=== PATIENT | male | born 1940 | race Caucasian/White ===

== ENCOUNTER 2020-10-22 18:26 | Inpatient (IN) | payer MEDICARE, OTHER ==
--- NOTE | 2020-10-22 19:13 | ED ---
General Adult HPI - General Chief complaint: Extremity Injury, Lower Stated complaint: fall Time Seen by Provider: 10/22/20 18:30 Source: EMS, RN notes reviewed, old records reviewed Mode of arrival: EMS Limitations: no limitations - History of Present Illness Initial comments: This is an 80-year-old male who presents emergency department from another ospital. Patient fell this morning after he tripped over something. Patient went to that facility and he was diagnosed with a right hip fracture. Patient denies hitting his head or neck. Patient denies any chest or back pain. Patient denies any upper quadrant pain. Patient denies any other injury. - Related Data Allergies Allergy/AdvReac Type Severity Reaction Status Date / Time No Known Allergies Allergy Verified 10/22/20 18:38 Review of Systems ROS Statement: Those systems with pertinent positive or pertinent negative responses have been documented in the HPI. ROS Other: All systems not noted in ROS Statement are negative. Past Medical History Past Medical History: Asthma, Heart Failure, COPD, Hypertension Additional Past Medical History / Comment(s): tachycardia History of Any Multi-Drug Resistant Organisms: None Reported Past Surgical History: No Surgical Hx Reported Past Psychological History: No Psychological Hx Reported Smoking Status: Vaper Past Alcohol Use History: None Reported Past Drug Use History: None Reported General Exam - General Exam Comments Initial Comments: GENERAL: Patient is well-developed and well-nourished. Patient is nontoxic and well- hydrated and is in mild distress. ENT: Neck is soft and supple. No significant lymphadenopathy is noted. Oropharynx is clear. Moist mucous membranes. Neck has full range of motion without eliciting any pain. EYES: The sclera were anicteric and conjunctiva were pink and moist. Extraocular movements were intact and pupils were equal round and reactive to light. Eyelids were unremarkable. PULMONARY: Unlabored respirations. Good breath sounds bilaterally. No audible rales rhonchi or wheezing was noted. CARDIOVASCULAR: There is a regular rate and rhythm without any murmurs gallops or rubs. ABDOMEN: Soft and nontender with normal bowel sounds. SKIN: Skin is clear with no lesions or rashes and otherwise unremarkable. NEUROLOGIC: Patient is alert and oriented x3. Cranial nerves II through XII are grossly intact. Motor and sensory are also intact. Normal speech, volume and content. Symmetrical smile. MUSCULOSKELETAL: Patient is having difficulty moving his right hip secondary to pain. Patient also has pain on palpation to the lateral and anterior aspect of the hip. LYMPHATICS: No significant lymphadenopathy is noted PSYCHIATRIC: Normal psychiatric evaluation. Limitations: no limitations Course Vital Signs 10/22/20 18:27 Temperature 99.5 F Pulse Rate 117 H Respiratory 20 Rate Blood Pressure 151/86 O2 Sat by Pulse 88 L Oximetry Medical Decision Making - Medical Decision Making I reviewed the patient's x-rays lab work and spoke with Kannan [facility] of [facility] he accepted the admission of the patient admitted the patient to Dr. Hodges and wrote admitting orders. Disposition Clinical Impression: Subcapital fracture of femur Disposition: ADMITTED IP TO THIS HOSP Referrals: Kt Wolf MD [Primary Care Provider] - 1-2 days Time of Disposition: 19:13
[2020-10-22] MEDS: SODIUM CHLORIDE 0.9% 1,000 ML IV ONE (20:03)
[2020-10-22 20:21] LABS: Basophils % (A) 0 %; Eosinophils # (A) 0.2 k/uL (0-0.7); Eosinophils % (A) 1 %; HCT 37.1 % (39.0-53.0); HGB 12.9 gm/dL (13.0-17.5); Lymphocytes # (A) 0.7 k/uL (1.0-4.8); Lymphocytes % (A) 5 %; MCH 28.6 pg (25.0-35.0); MCHC 34.8 g/dL (31.0-37.0); MCV 82.2 fL (80.0-100.0); Monocytes # (A) 0.7 k/uL (0-1.0); Monocytes % (A) 5 %; Neutrophils # (A) 10.7 k/uL (1.3-7.7); Neutrophils % (A) 86 %; Platelet Count 230 k/uL (150-450); RBC 4.51 m/uL (4.30-5.90); RDW 14.6 % (11.5-15.5); WBC 12.4 k/uL (3.8-10.6)
[2020-10-22 20:29] LABS: Prothrombin Time 10.8 sec (9.0-12.0)
[2020-10-22 20:35] LABS: ALT 22 U/L (4-49); AST 36 U/L (17-59); African American GFR (CKD) >90 (>60 ml/min/1.73 sqM); Albumin 3.6 g/dL (3.5-5.0); Alkaline Phosphatase 87 U/L (38-126); Anion Gap 8 mmol/L; Blood Urea Nitrogen 13 mg/dL (9-20); Calcium 8.9 mg/dL (8.4-10.2); Carbon Dioxide 34 mmol/L (22-30); Chloride 98 mmol/L (98-107); Glucose 125 mg/dL (74-99); Non-African American GFR(CKD) 85 (>60 ml/min/1.73 sqM); Sodium 140 mmol/L (137-145); Total Protein 6.1 g/dL (6.3-8.2)
[2020-10-22 20:42] LABS: Potassium 2.3 mmol/L (3.5-5.1)
[2020-10-22] MEDS ORDERED: POTASSIUM CHLORIDE ER 20 MEQ TAB.ER PO STA (20:43)
[2020-10-22] MEDS ORDERED: POTASSIUM CHLORIDE 40 MEQ in WATER FOR INJECTION 1 100ML.BAG IVPB STA (20:48)
[2020-10-22] MEDS: POTASSIUM CHLORIDE 20 MEQ in WATER FOR INJECTION 1 100ML.BAG IVPB SCH (21:23)
[2020-10-22] MEDS: HYDROmorphone 0.5 MG/0.5 ML SYRINGE IVP PRN (22:42)
[2020-10-23] MEDS: POTASSIUM CHLORIDE 20 MEQ in WATER FOR INJECTION 1 100ML.BAG IVPB SCH (00:24)
[2020-10-23] MEDS ORDERED: IPRATROPIUM-ALBUTEROL 3 ML NEB INHALATION PRN (02:49)
--- NOTE | 2020-10-23 02:49 | P.CONS ---
History of Present Illness - Reason for Consult Consult date: 10/22/20 pre op eval Requesting physician: Panfilo Hodges - Chief Complaint right hip pain - History of Present Illness 80 year old male with history of COPD not on home oxygen , BPA, hypertension , ? CHF patient claims to be at his baseline status of health, he works at an [employer], when today he tripped and fell , could not get up due to severe right hip pain, he denies any associated dizziness, palpitations or chest pain , no head injury or LOC. patient was taken to a different facility where they ran some blood work and imaging, and found that he has right hip fracture )right femoral subcapital fracture) . he was sent to our facility for further workup he currently laying comfortably in bed with pain well controlled, denies any other active medical issues blood work also showed mild anemia, patient denies GI bleeding ,but he never had any colonoscopies Review of Systems Pertinent positives as noted in HPI. All other systems were reviewed and are negative Past Medical History Past Medical History: Asthma, Heart Failure, COPD, Hypertension Additional Past Medical History / Comment(s): tachycardia History of Any Multi-Drug Resistant Organisms: None Reported Past Surgical History: No Surgical Hx Reported Past Anesthesia/Blood Transfusion Reactions: No Reported Reaction Past Psychological History: No Psychological Hx Reported Smoking Status: Former smoker, Vaper Past Alcohol Use History: None Reported Past Drug Use History: None Reported - Past Family History family Family Medical History: No Reported History Medications and Allergies Home Medications Medication Instructions Recorded Confirmed Type Budesonide [Pulmicort] 0.5 mg INHALATION RT-BID PRN 10/22/20 10/22/20 History Fluticasone Nasal [place] [Flonase 2 spr EA NOSTRIL DAILY PRN 10/22/20 10/22/20 History Nasal [place]] Furosemide [Lasix] 20 - 40 mg PO DAILY PRN 10/22/20 10/22/20 History Ipratropium-Albuterol Nebulize 3 ml INHALATION RT-QID PRN 10/22/20 10/22/20 History [Duoneb 0.5 mg-3 mg/3 ml Soln] Metoprolol Tartrate [Lopressor] 12.5 mg PO BID 10/22/20 10/22/20 History Potassium Chloride ER [K-Dur 10] 10 meq PO DAILY 10/22/20 10/22/20 History Tamsulosin [Flomax] 0.4 mg PO DAILY 10/22/20 10/22/20 History lisinopriL [Zestril] 10 mg PO DAILY 10/22/20 10/22/20 History Allergies Allergy/AdvReac Type Severity Reaction Status Date / Time No Known Allergies Allergy Verified 10/22/20 19:44 Physical Exam Vitals: Vital Signs Temp Pulse Pulse Resp BP BP Pulse Ox 10/23/20 01:05 98.9 F 105 H 17 158/86 92 L 10/22/20 22:01 98.9 F 108 H 16 160/92 94 L 10/22/20 22:00 105 H 17 10/22/20 21:18 110 H 16 169/97 95 10/22/20 20:00 112 H 16 156/81 87 L 10/22/20 18:27 99.5 F 117 H 20 151/86 88 L Intake and Output 10/22/20 10/22/20 10/23/20 14:59 22:59 06:59 Output Total 600 600 Balance -600 -600 Output: Urine 600 600 Other: Voiding Method Indwelling Catheter Weight 76.204 kg Constitutional: No acute distress, conversant, pleasant Eyes: Anicteric sclerae, moist conjunctiva, Pupils equal round reactive to light ENMT: NC/AT Oropharynx clear, no erythema, or exudates Neck: Supple, FROM, no masses, or JVD No carotid bruits No thyromegaly Lungs: Clear to auscultation Clear to percussion Normal respiratory effort, no accessory muscle use Cardiovascular: Heart regular in rate and rhythm, No murmurs, gallops, or rubs No peripheral edema Abdominal: Soft Nontender, no guarding, rebound or rigidity Abdomen moving with respiration Normoactive bowel sounds No hepatomegaly, No splenomegaly No palpable mass No abdominal wall hernia noted Skin: Normal temperature, tone, texture, turgor No induration No subcutaneous nodules No rash, lesions No ulcers Extremities: right lower extremity is externally rotated No digital cyanosis No clubbing Pedal pulses intact and symmetrical Radial pulses intact and symmetrical No calf tenderness Psychiatric: Alert and oriented to person, place and time Appropriate affect fair judgement Neuro Muscles Strength 5/5 in bilateral upper extremities, and left lower extremity , right lower extremity limited exam due to recent fracture and pain Sensation to light touch grossly present throughout Cranial nerves II-XII grossly intact No focal sensory deficits Lymphatics: no palpable cervical or supraclavicular , or inguinal lymph nodes Results CBC & Chem 7: 10/22/20 20:06 10/22/20 20:06 Labs: Abnormal Lab Results - Last 24 Hours (Table) 10/22/20 10/22/20 Range/Units 20:06 20:06 WBC 12.4 H (3.8-10.6) k/uL Hgb 12.9 L (13.0-17.5) gm/dL Hct 37.1 L (39.0-53.0) % Neutrophils # 10.7 H (1.3-7.7) k/uL Lymphocytes # 0.7 L (1.0-4.8) k/uL Potassium 2.3 L* (3.5-5.1) mmol/L Carbon Dioxide 34 H (22-30) mmol/L Glucose 125 H (74-99) mg/dL Total Protein 6.1 L (6.3-8.2) g/dL Assessment and Plan Assessment: Closed acute right femoral subcapital fracture 2/2 accidental fall management per orthopedic pain control and DVT PPX hypertension , controlled resume BP meds hypokalemia replace PO and IV follow up level check Mg EKG NSR no acute ST changes (copy of EKG reviewed that was done at [facility] ) mild anemia denies any GI bleeding consider OP follow up , and consider colonoscopy for cancer screening denies weight loss COPD compensated not on home O2 resume inhalers duonebs PRN encourage use of incentive spirometry post op BPA resume flomax patient is full code patient denies any history of CHF , although it is listed in his past medical history , currently he is not fluid overloaded or any signs of acute CHF exacerbation patient is 80 year old Male, presetned with right closed femoral fracture . Patient denies any recent history or symptoms of congestive heart failure, myocardial infarction, syncope, arrhythmia, palpitation, or exertional dyspnea. Patient denies any past medical history of stroke, CAD, CHF, CKD, or DM. Patient is functional at baseline at >4 METs he is able to climb one flight of stairs with no limitations, he is able to perform yard work with no limitations. Patient labs reviewed, EKG reviewed. Patient is scheduled for orthopedic surgery to fix right hip fracture. This is of moderate risk, however, patient has no medical risk factors from his past medical history. Patient can proceed to surgery with moderate but acceptable perioperative cardiovascular risk factors contingent his potassium level is corrected. This has been explained to the patient , all questions answered, patient verbalized understanding and agreement.
[2020-10-23] MEDS: SODIUM CHLORIDE 0.9% 1,000 ML IV ONE (05:15)
[2020-10-23] MEDS: POTASSIUM CHLORIDE 10 MEQ in WATER FOR INJECTION 1 100ML.BAG IVPB SCH ×4 (05:55→10:48)
[2020-10-23] MEDS: BUDESONIDE 0.5 MG/2 ML NEBU INHALATION PRN ×2 (07:27→19:52)
--- NOTE | 2020-10-23 08:02 | P.HPOR ---
History of Present Illness H&P Date: 10/23/20 Chief Complaint: Right hip fracture Patient is a 80-year-old male who was transferred to [facility] from a hospital [facility] after falling and injuring his right hip. Nose contacted by the emergency room staff yesterday regarding this, it was initially determined he had a right subcapital femur fracture. There was no orthopedic coverage at the hospital he was transferred from. Patient was evaluated at bedside today, Dr. Hodges was also available. Apparently the patient works at a [employer] in [place], [place]. He tripped and fell at work falling onto his right side. He denies hitting his head during the fall. He had severe pain involving the right lower extremity. He was unable to ambulate. He was taken to hospital in that area, x-rays were done which demonstrated the fracture of the right proximal femur. He describes mostly discomfort in his right lower extremity. He denies any bilateral upper extremity pain, left lower extremity pain, new onset cervical, thoracic or lumbar pain. He denies any headaches, lightheadedness, chest pain. Patient is requesting a nebulizer treatment for his shortness of breath which is baseline. Review of Systems Constitutional: Reports as per HPI Past Medical History Past Medical History: Asthma, Heart Failure, COPD, Hypertension Additional Past Medical History / Comment(s): tachycardia History of Any Multi-Drug Resistant Organisms: None Reported Past Surgical History: No Surgical Hx Reported Past Anesthesia/Blood Transfusion Reactions: No Reported Reaction Past Psychological History: No Psychological Hx Reported Smoking Status: Former smoker, Vaper Past Alcohol Use History: None Reported Past Drug Use History: None Reported - Past Family History family Family Medical History: No Reported History Medications and Allergies Home Medications Medication Instructions Recorded Confirmed Type Budesonide [Pulmicort] 0.5 mg INHALATION RT-BID PRN 10/22/20 10/22/20 History Fluticasone Nasal [place] [Flonase 2 spr EA NOSTRIL DAILY PRN 10/22/20 10/22/20 History Nasal [place]] Furosemide [Lasix] 20 - 40 mg PO DAILY PRN 10/22/20 10/22/20 History Ipratropium-Albuterol Nebulize 3 ml INHALATION RT-QID PRN 10/22/20 10/22/20 History [Duoneb 0.5 mg-3 mg/3 ml Soln] Metoprolol Tartrate [Lopressor] 12.5 mg PO BID 10/22/20 10/22/20 History Potassium Chloride ER [K-Dur 10] 10 meq PO DAILY 10/22/20 10/22/20 History Tamsulosin [Flomax] 0.4 mg PO DAILY 10/22/20 10/22/20 History lisinopriL [Zestril] 10 mg PO DAILY 10/22/20 10/22/20 History Allergies Allergy/AdvReac Type Severity Reaction Status Date / Time No Known Allergies Allergy Verified 10/22/20 19:44 Physical Examination Right lower extremity: No obvious open lesions or sores are present throughout the extremity, there is obvious shortening and external rotation of the leg compared to the contralateral side Patient has generalized tenderness palpation involving the proximal aspect of the right lower extremity. Logroll maneuver of the leg does reproduce discomfort, he is unable to straight leg raise at this time Plantar flexion, dorsiflexion, EHL, FHL are intact,strength deficits appreciated. Motion and strength are not assessed of the hip or knee at this time Calf is soft, no tenderness with palpation Sensory exam to light touch is intact throughout the extremity, dorsalis pedis pulses 2+ General orthopedic exam: No point tenderness is appreciated that the cervical, thoracic or lumbar spine No point tenderness appreciated in the bilateral upper extremities, his range of motion is intact in all major muscle groups. Sensory exam to light touch throughout the bilateral upper extremities intact, his radial and ulnar pulses are 2+ No point tenderness appreciated throughout the left lower extremity, logroll maneuver reproduces no pain. Range of motion is intact in all major muscle groups. Sensory exam to light touch is intact throughout the left lower extremity, calf is soft, no tenderness with palpation. Dorsalis pedis pulses 2+ Results - Labs Labs: Abnormal Lab Results - Last 24 Hours (Table) 10/22/20 10/22/20 10/23/20 Range/Units 20:06 20:06 03:52 WBC 12.4 H (3.8-10.6) k/uL Hgb 12.9 L (13.0-17.5) gm/dL Hct 37.1 L (39.0-53.0) % Neutrophils # 10.7 H (1.3-7.7) k/uL Lymphocytes # 0.7 L (1.0-4.8) k/uL Potassium 2.3 L* 3.0 L (3.5-5.1) mmol/L Carbon Dioxide 34 H (22-30) mmol/L Glucose 125 H (74-99) mg/dL Total Protein 6.1 L (6.3-8.2) g/dL H & H 10/22/20 Range/Units 20:06 Hgb 12.9 L (13.0-17.5) gm/dL Hct 37.1 L (39.0-53.0) % Coagulation 10/22/20 Range/Units 20:06 INR 1.0 (<1.2) Result Diagrams: 10/22/20 20:06 10/23/20 03:52 - Diagnostic results Hip x-ray: report reviewed, image reviewed Assessment and Plan Assessment: Right hip pain Displaced right subcapital femur fracture Status post fall from standing Hypokalemia Other medical comorbidities Plan: Dr. Hodges and myself were both at bedside today to explain the treatment options with the patient. We would like to proceed with a right hip hemiarthroplasty on 10/23/2020. Patient was made nothing by mouth after midnight last night Risk and benefits of the procedure were discussed patient today at bedside, he is in good understanding and would like to proceed, obtain consent prior to procedure Surgery will be tenably scheduled for later this afternoon, pending his potassiu m levels are corrected. If this is not achievable, we will plan for surgery on 10/24/2020 Pain control, continue with current medication. Plan for use of low-dose oral medication after surgery GI and DVT prophylaxis, will begin subcu medication after surgery Medical recommendations PT/OT evaluation of surgery Maintain urinary catheter at this time Further recommendations to follow Time with Patient: Less than 30
[2020-10-23] MEDS: METOPROLOL TARTRATE 12.5 MG TAB PO SCH ×2 (08:41→22:03)
[2020-10-23] MEDS: TAMSULOSIN 0.4 MG CAP.ER.24H PO SCH (08:41)
[2020-10-23] MEDS ORDERED: FLUTICASONE 50MCG/SPRAY NASAL 16GM EA NOSTRIL PRN (09:00)
[2020-10-23 09:58] LABS: African American GFR (CKD) >90 (>60 ml/min/1.73 sqM); Anion Gap 7 mmol/L; Blood Urea Nitrogen 11 mg/dL (9-20); Carbon Dioxide 34 mmol/L (22-30); Chloride 101 mmol/L (98-107); Glucose 118 mg/dL (74-99); Non-African American GFR(CKD) 87 (>60 ml/min/1.73 sqM); Potassium 2.9 mmol/L (3.5-5.1); Sodium 142 mmol/L (137-145)
[2020-10-23] MEDS ORDERED: POTASSIUM CHLORIDE ER 20 MEQ TAB.ER PO STA (10:35)
[2020-10-23] MEDS ORDERED: POTASSIUM CHLORIDE 10 MEQ in WATER FOR INJECTION 1 100ML.BAG IVPB SCH (11:00)
[2020-10-23] MEDS: IPRATROPIUM-ALBUTEROL 3 ML NEB INHALATION SCH ×3 (12:17→19:52)
--- NOTE | 2020-10-23 12:18 | P.PN ---
<Gurpreet Santiago - Last Filed: 10/23/20 12:18> Subjective Progress Note Date: 10/23/20 Hospital course: Patient is a very pleasant 80-year-old male with a past medical history of COPD not home oxygen dependent, hypertension, and BPH. Patient reports that he works at an [employer] and was retiring on November 07, however while at work yesterday he tripped and fell resulting in instant pain to his right hip. Patient was found to have a right femoral subcapital fracture and admitted under orthopedic surgery team with Dr. Hodges. We have been consulted for continued medical management throughout patient's hospitalization. In addition to right femoral subcapital fracture patient also found to have significant hypokalemia upon admission with potassium of 2.3 requiring replacement. Labs otherwise indicated mild leukocytosis with WBC count of 12.4, mild normocytic n ormochromic anemia with hemoglobin of 12.9, and hypercarbia with carbon dioxide of 34. Covid PCR was negative. Physical exam: Patient seen and fully evaluated at the bedside this morning. Patient reports pain to his right hip but denies any other complaints at this time including headache, lightheadedness, dizziness, chest pain, palpitations, shortness of breath, abdominal pain, nausea, vomiting, or experiencing any numbness or tingling in his extremities. Patient with positive shortening and right lateral rotation of right lower extremity. Posterior tibial pulse palpated. Patient scheduled for surgical repair of right femur later this afternoon. Potassium remains low status post replacement with repeat labs showing potassium up to 2.9 from previous 2.3. Additional orders placed along with stat redraw at 2 PM to ensure correction of electrolytes prior to surgical procedure. Vital signs reviewed and stable. General: Nontoxic, no distress and appears stated age. Derm: Skin warm and dry, normal coloration for ethnicity. Head: Atraumatic, normocephalic and symmetric. Eyes: EOMs intact, no lid lag, and anicteric sclera Mouth: no lip lesions, mucus membranes moist Cardiovascular: regular rate and rhythm with normal S1S2, no murmur, positive posterior tibial pulses bilaterally, and cap refill < 2 seconds. Lungs: Respirations even, regular, and unlabored on room air. Lungs with diffuse soft expiratory wheezes bilaterally. No rales, rhonchi, or crackles and no accessory muscle usage. Abdominal: soft, nontender to palpation, no guarding, no appreciable organomegaly. Rodriguez catheter in place. Ext: Patient with positive shortening and right lateral rotation of right lower extremity. Posterior tibial pulse palpated Neuro: Speech clear, face symmetrical and CN II-XII grossly intact with no noted focal neuro deficits Psych: Alert and oriented to person, place, time, and situation. Appropriate and pleasant affect. Assessment and Plan of Care: Closed acute right femoral subcapital fracture secondary to mechanical fall -Pain management, DVT prophylaxis, weightbearing, and PT/OT per primary admitting orthopedic surgery team. Hypokalemia -Potassium 2.9 status post replacement. Orders placed for additional potassium to be administered with stat repeat labs at 2 PM to ensure correction of potassium prior to patient undergoing surgical repair of right femur this afternoon. -We will continue to monitor closely with repeat labs and replace abnormal electrolyte values as needed. Mild anemia -Mild normocytic normochromic anemia with hemoglobin of 12.9. -No signs of active bleeding at this time, we will continue to monitor closely with repeat a.m. labs. COPD -Provide oxygenation as needed to maintain SpO2 equal to or greater than 90%. -Continue Pulmicort and as needed nebulizer treatments. -Encourage use of incentive spirometry 10-15 times hourly while awake. BPH -Continue daily home regimen with Flomax Thank you for allowing us to participate in the care of this pleasant patient. Do not hesitate to contact us with questions. Someone can be reached from the [facility] hospitalist group all hours of the day at [phone] or via [employer]. Objective - Vital Signs Vital signs: Vital Signs Temp 98.4 F 10/23/20 07:14 Pulse 100 10/23/20 07:41 Resp 18 10/23/20 07:41 BP 174/87 10/23/20 07:14 Pulse Ox 99 10/23/20 07:31 Intake & Output 10/22/20 10/23/20 10/23/20 18:59 06:59 18:59 Output Total 1700 Balance -1700 Weight 76.204 kg 76.204 kg Output: Urine 1700 Other: Voiding Method Indwelling Catheter Indwelling Catheter - Labs CBC & Chem 7: 10/22/20 20:06 10/23/20 09:03 Labs: Abnormal Lab Results - Last 24 Hours (Table) 09/10/22/20 10/23/20 Range/Units 20:06 20:06 03:52 WBC 12.4 H (3.8-10.6) k/uL Hgb 12.9 L (13.0-17.5) gm/dL Hct 37.1 L (39.0-53.0) % Neutrophils # 10.7 H (1.3-7.7) k/uL Lymphocytes # 0.7 L (1.0-4.8) k/uL Potassium 2.3 L* 3.0 L (3.5-5.1) mmol/L Carbon Dioxide 34 H (22-30) mmol/L Glucose 125 H (74-99) mg/dL Total Protein 6.1 L (6.3-8.2) g/dL 10/23/20 Range/Units 09:03 WBC (3.8-10.6) k/uL Hgb (13.0-17.5) gm/dL Hct (39.0-53.0) % Neutrophils # (1.3-7.7) k/uL Lymphocytes # (1.0-4.8) k/uL Potassium 2.9 L (3.5-5.1) mmol/L Carbon Dioxide 34 H (22-30) mmol/L Glucose 118 H (74-99) mg/dL Total Protein (6.3-8.2) g/dL <Mana Ryder - Last Filed: 10/23/20 15:36> Objective - Vital Signs Vital signs: Vital Signs Temp 99.4 F 10/23/20 15:33 Pulse 80 10/23/20 15:33 Resp 16 10/23/20 15:33 BP 152/85 10/23/20 15:33 Pulse Ox 96 10/23/20 15:33 Intake & Output 10/22/20 10/23/20 10/23/20 18:59 06:59 18:59 Output Total 1700 1800 Balance -1700 -1800 Weight 76.204 kg 76.204 kg Output: Urine 1700 1800 Uretheral (Rodriguez) 1800 Other: Voiding Method Indwelling Catheter Indwelling Catheter - Labs CBC & Chem 7: 10/22/20 20:06 10/23/20 15:07 Labs: Abnormal Lab Results - Last 24 Hours (Table) 10/22/20 10/22/2010/23/21 Range/Units 20:06 20:06 03:52 WBC 12.4 H (3.8-10.6) k/uL Hgb 12.9 L (13.0-17.5) gm/dL Hct 37.1 L (39.0-53.0) % Neutrophils # 10.7 H (1.3-7.7) k/uL Lymphocytes # 0.7 L (1.0-4.8) k/uL Potassium 2.3 L* 3.0 L (3.5-5.1) mmol/L Carbon Dioxide 34 H (22-30) mmol/L Glucose 125 H (74-99) mg/dL Total Protein 6.1 L (6.3-8.2) g/dL 10/23/20 Range/Units 09:03 WBC (3.8-10.6) k/uL Hgb (13.0-17.5) gm/dL Hct (39.0-53.0) % Neutrophils # (1.3-7.7) k/uL Lymphocytes # (1.0-4.8) k/uL Potassium 2.9 L (3.5-5.1) mmol/L Carbon Dioxide 34 H (22-30) mmol/L Glucose 118 H (74-99) mg/dL Total Protein (6.3-8.2) g/dL Assessment and Plan Assessment: I reviewed the documentation as provided by the ARMIN above, who is the original author of this note. I agree with the documented assessment and plan, with the following changes: None
--- NOTE | 2020-10-23 17:09 | P.PN ---
Progress Note - Text Progress Note Date: 10/23/20 Patient's surgery was canceled for today due to or availability. Patient and were both notified at bedside. Patient will be made nothing by mouth after midnight. Plan is for surgery on 10/24/2020
[2020-10-24 06:34] LABS: African American GFR (CKD) >90 (>60 ml/min/1.73 sqM); Anion Gap 7 mmol/L; Blood Urea Nitrogen 12 mg/dL (9-20); Calcium 8.8 mg/dL (8.4-10.2); Carbon Dioxide 28 mmol/L (22-30); Chloride 104 mmol/L (98-107); Glucose 104 mg/dL (74-99); Non-African American GFR(CKD) 87 (>60 ml/min/1.73 sqM); Potassium 3.1 mmol/L (3.5-5.1); Sodium 139 mmol/L (137-145)
[2020-10-24] MEDS: HYDROmorphone 0.5 MG/0.5 ML SYRINGE IVP PRN (07:21)
[2020-10-24] MEDS ORDERED: POTASSIUM CHLORIDE ER 20 MEQ TAB.ER PO STA (07:36)
[2020-10-24] MEDS: METOPROLOL TARTRATE 12.5 MG TAB PO SCH ×2 (08:51→21:51)
[2020-10-24] MEDS: TAMSULOSIN 0.4 MG CAP.ER.24H PO SCH (08:52)
--- NOTE | 2020-10-24 08:52 | P.PN ---
<Gurpreet Santiago - Last Filed: 10/24/20 15:03> Subjective Progress Note Date: 10/24/20 Hospital course: Patient is a very pleasant 80-year-old male with a past medical history of COPD not home oxygen dependent, hypertension, and BPH. Patient reports that he works at an [employer] and was retiring on November 07, however while at work he tripped and fell resulting in instant pain to his right hip. Patient was found to have a right femoral subcapital fracture and admitted to the hospital on 10/22/20 under orthopedic surgery team with Dr. Hodges. We were consulted for continued medical management throughout patient's hospitalization. In addition to right femoral subcapital fracture patient was also found to have significant hypokalemia upon admission with potassium of 2.3 requiring replacement. Labs otherwise indicated mild leukocytosis with WBC count of 12.4, mild normocytic normochromic anemia with hemoglobin of 12.9, and hypercarbia with carbon dioxide of 34. Covid PCR was negative. Physical exam: Patient seen and fully evaluated at the bedside this morning. Patient reports pain to his right hip is currently "manageable". He is scheduled for surgery with Dr. Hodges today at 12:30. Patient denies having any headache, lightheadedness, dizziness, chest pain, palpitations, shortness of breath, abdominal pain, nausea, vomiting, or experiencing any numbness/tingling/weakness in his extremities. Potassium remains low despite replacement yesterday and was 3.1 this morning. Additional orders placed for replacement. Vital signs reviewed and stable. General: Nontoxic, no distress and appears stated age. Derm: Skin warm and dry, normal coloration for ethnicity. Head: Atraumatic, normocephalic and symmetric. Eyes: EOMs intact, no lid lag, and anicteric sclera Mouth: no lip lesions, mucus membranes moist Cardiovascular: regular rate and rhythm with normal S1S2, no murmur, positive posterior tibial pulses bilaterally, and cap refill < 2 seconds. Lungs: Respirations even, regular, and unlabored on room air. Lungs with diffuse soft expiratory wheezes bilaterally. No rales, rhonchi, or crackles and no accessory muscle usage. Abdominal: soft, nontender to palpation, no guarding, no appreciable organomegaly. Rodriguez catheter in place. Ext: Patient with positive shortening and right lateral rotation of right lower extremity. Posterior tibial pulse palpated Neuro: Speech clear, face symmetrical and CN II-XII grossly intact with no noted focal neuro deficits Psych: Alert and oriented to person, place, time, and situation. Appropriate and pleasant affect. Assessment and Plan of Care: Closed acute right femoral subcapital fracture secondary to mechanical fall -Pain management, DVT prophylaxis, weightbearing, and PT/OT per primary admitting orthopedic surgery team. -Scheduled to go down for surgical repair today at 12:[address] Hodges. Hypokalemia -Potassium 3.1 this morning, replaced. -We will continue to monitor closely with repeat labs and replace abnormal electrolyte values as needed. Mild anemia -Mild normocytic normochromic anemia with hemoglobin of 11.1. -No signs of active bleeding at this time, we will continue to monitor closely with repeat a.m. labs. COPD -Provide oxygenation as needed to maintain SpO2 equal to or greater than 90%. -Continue Pulmicort and as needed nebulizer treatments. -Encourage use of incentive spirometry 10-15 times hourly while awake. BPH -Continue daily home regimen with Flomax Thank you for allowing us to participate in the care of this pleasant patient. Do not hesitate to contact us with questions. Someone can be reached from the [facility] [place] hospitalist group all hours of the day at [phone] or via [employer]. Objective - Vital Signs Vital signs: Vital Signs Temp 99.2 F 10/24/20 07:14 Pulse 76 10/24/20 07:14 Resp 16 10/24/20 07:14 BP 148/80 10/24/20 07:14 Pulse Ox 95 10/24/20 00:45 Intake & Output 10/23/20 10/24/20 10/24/20 18:59 06:59 18:59 Output Total 1800 750 Balance -1800 -750 Output: Urine 1800 750 Uretheral (Rodriguez) 1800 Other: Voiding Method Indwelling Catheter Indwelling Catheter # Bowel Movements 0 - Labs CBC & Chem 7: 10/24/20 05:37 10/24/20 12:29 Labs: Abnormal Lab Results - Last 24 Hours (Table) 10/23/20 10/24/20 Range/Units 09:03 05:37 Potassium 2.9 L 3.1 L (3.5-5.1) mmol/L Carbon Dioxide 34 H (22-30) mmol/L Glucose 118 H 104 H (74-99) mg/dL <Mana Ryder - Last Filed: 10/24/20 17:51> Objective - Vital Signs Vital signs: Vital Signs Temp 97.8 F 10/24/20 15:40 Pulse 82 10/24/20 16:25 Resp 16 10/24/20 16:25 BP 144/72 10/24/20 16:25 Pulse Ox 97 10/24/20 16:25 Intake & Output 10/23/20 10/24/20 10/24/20 18:59 06:59 18:59 Intake Total 1151 Output Total 1800 750 250 Balance -1800 -750 901 Weight 76.2 kg Intake: IV 1151 Output: Urine 1800 750 150 Uretheral (Rodriguez) 1800 Estimated Blood Loss 100 Other: Voiding Method Indwelling Catheter Indwelling Catheter Indwelling Catheter # Bowel Movements 0 - Labs CBC & Chem 7: 10/24/20 05:37 10/24/20 12:29 Labs: Abnormal Lab Results - Last 24 Hours (Table) 10/24/20 10/24/20 Range/Units 05:37 05:37 WBC 10.24 H (4.50-10.00) X 10*3/uL RBC 3.95 L (4.40-5.60) X 10*6/uL Hgb 11.1 L (13.0-17.0) g/dL Hct 34.2 L (39.6-50.0) % RDW 15.3 H (11.5-14.5) % Potassium 3.1 L (3.5-5.1) mmol/L Glucose 104 H (74-99) mg/dL Assessment and Plan Assessment: I reviewed the documentation as provided by the ARMIN above, who is the original author of this note. I agree with the documented assessment and plan, with the following changes: None
[2020-10-24] MEDS ORDERED: lisinopriL 10 MG TAB PO SCH (09:00)
[2020-10-24] MEDS: BUDESONIDE 0.5 MG/2 ML NEBU INHALATION PRN (09:21)
[2020-10-24] MEDS: IPRATROPIUM-ALBUTEROL 3 ML NEB INHALATION SCH ×4 (09:22→19:35)
[2020-10-24 09:24] LABS: HCT 34.2 % (39.6-50.0); HGB 11.1 g/dL (13.0-17.0); MCH 28.1 pg (27.0-32.0); MCHC 32.5 g/dL (32.0-37.0); MCV 86.6 fL (80.0-97.0); Mean Platelet Volume 10.1 fL (9.5-12.2); Platelet Count 157 X 10*3/uL (140-440); RBC 3.95 X 10*6/uL (4.40-5.60); RDW 15.3 % (11.5-14.5); WBC 10.24 X 10*3/uL (4.50-10.00)
[2020-10-24] MEDS ORDERED: IV FLUID CONTINUATION 1,000 ML IV ONE (12:19)
--- NOTE | 2020-10-24 12:43 | P.PN ---
Progress Note - Text Progress Note Date: 10/24/20 Patient seen and examined this morning is doing fairly well he still having pain in his right hip. We discussed surgery today and he is on board discussed risks and benefits again including risk of bleeding infection and strengthening tissues reoperation of anesthesia including is willing to assume these risks and all risks of surgery. We confirmed his consent again he has been nothing by mouth since midnight. Patient is ready and willing to proceed with procedure as exam remained stable at this time and we will plan on one p.m. for surgery.
[2020-10-24] MEDS ORDERED: ONDANSETRON 4 MG/2 ML VIAL IVP ONE (12:59)
[2020-10-24] MEDS ORDERED: DEXAMETHASONE SOD PHOSPHATE 4 MG/ML 1 ML VIAL IVP ONE (13:00)
[2020-10-24] MEDS ORDERED: ONDANSETRON 4 MG/2 ML VIAL ONE (13:01)
[2020-10-24] MEDS ORDERED: SODIUM CHLORIDE 0.9% 100 ML BAG ONE (13:27)
[2020-10-24] MEDS ORDERED: fentaNYL (PF) 50 MCG/ML 2 ML AMP ONE (13:27)
[2020-10-24] MEDS ORDERED: PHENYLEPHRINE-0.9% NACL SYG 1,000 MCG/10 ML SYRINGE ONE (13:27)
[2020-10-24] MEDS ORDERED: MIDAZOLAM 2 MG/2 ML VIAL ONE (13:27)
[2020-10-24] MEDS ORDERED: KETAMINE 10 MG/ML 20 ML VIAL ONE (13:27)
[2020-10-24] MEDS ORDERED: PROPOFOL 10 MG/ML 20 ML VIAL IV ONE (13:27)
[2020-10-24] MEDS ORDERED: TRANEXAMIC ACID 1,000 MG/10 ML VIAL ONE (13:27)
[2020-10-24] MEDS ORDERED: ceFAZolin 3,000 MG in SODIUM CHLORIDE 0.9% IRRIGATIO 3,000 ML IRRIGATION ONE (14:08)
[2020-10-24] MEDS ORDERED: TRANEXAMIC ACID 1,000 MG in SODIUM CHLORIDE 0.9% 100 ML IVPB ONE ×2 (14:29→14:30)
[2020-10-24] MEDS ORDERED: LACTATED RINGERS 1,000 ML IV ONE (15:35)
[2020-10-24] MEDS ORDERED: MAGNESIUM HYDROXIDE 2,400 MG/10 ML CUP PO PRN (15:48)
[2020-10-24] MEDS ORDERED: traMADol 50 MG TAB PO PRN (15:48)
[2020-10-24] MEDS ORDERED: ACETAMINOPHEN TAB 325 MG TAB PO PRN (15:48)
[2020-10-24] MEDS ORDERED: NALOXONE 0.4 MG/ML 1 ML VIAL IV PRN (15:48)
[2020-10-24] MEDS ORDERED: HYDROcodone/APAP 5-325MG 1 EACH TAB PO PRN (15:48)
--- NOTE | 2020-10-24 16:00 | P.PN ---
Progress Note - Text Progress Note Date: 10/24/20 Brief Post Op: Surgeon: Tracie Pre op dx; right femoral neck fracture Post op dx: Same Procedure: Right hip hemiarthroplasty Implants: [employer] stem size size 7 collared standard neck 52 bipolar head with a 28 inner Anesthesia: Spinal with sedation EBL: 1 50 mL Fluids: 1200 mL UO: 75 mL Dispo: Stable to PACU Post op Plan: Post operative AP pelvis as well as AP and lateral of the right hip Encourage ambulation IS 10x/hr Teds/SCDs Pain control Abduction pillow when laying in bed PT OT daily
--- NOTE | 2020-10-24 18:45 | XR ---
EXAMINATION TYPE: XR Hip Complete RT DATE OF EXAM: 10/24/2020 COMPARISON: 10/22/2020 HISTORY: Hip fracture TECHNIQUE: 2 views FINDINGS: There is right hip prosthesis. Components appear in good position. Acetabulum is intact. IMPRESSION: No complicating process seen.
[2020-10-24] MEDS: HYDROcodone/APAP 5-325MG 1 EACH TAB PO PRN (21:50)
[2020-10-24] MEDS: SENNOSIDES-DOCUSATE SODIUM 1 EACH TAB PO SCH (21:50)
[2020-10-25] MEDS: BUDESONIDE 0.5 MG/2 ML NEBU INHALATION PRN (07:25)
[2020-10-25] MEDS: IPRATROPIUM-ALBUTEROL 3 ML NEB INHALATION SCH ×4 (07:25→20:08)
[2020-10-25 08:09] LABS: Basophils % (A) 0 %; Eosinophils % (A) 0 %; HCT 29.9 % (39.0-53.0); Lymphocytes # (A) 0.9 k/uL (1.0-4.8); Lymphocytes % (A) 8 %; MCH 28.3 pg (25.0-35.0); MCHC 33.3 g/dL (31.0-37.0); MCV 84.9 fL (80.0-100.0); Mean Platelet Volume 7.6; Monocytes # (A) 0.6 k/uL (0-1.0); Monocytes % (A) 6 %; Neutrophils # (A) 8.5 k/uL (1.3-7.7); Neutrophils % (A) 83 %; Platelet Count 190 k/uL (150-450); RBC 3.52 m/uL (4.30-5.90); RDW 14.3 % (11.5-15.5); WBC 10.2 k/uL (3.8-10.6)
[2020-10-25] MEDS: TAMSULOSIN 0.4 MG CAP.ER.24H PO SCH (08:22)
[2020-10-25] MEDS: lisinopriL 10 MG TAB PO SCH (08:22)
[2020-10-25] MEDS: METOPROLOL TARTRATE 12.5 MG TAB PO SCH ×2 (08:22→21:28)
--- NOTE | 2020-10-25 09:14 | P.PN ---
<Gurpreet Santiago - Last Filed: 10/25/20 14:31> Subjective Progress Note Date: 10/25/20 Hospital course: Patient is a very pleasant 80-year-old male with a past medical history of COPD not home oxygen dependent, hypertension, and BPH. Patient reports that he works at an [employer] and was retiring on November 07, however while at work he tripped and fell resulting in instant pain to his right hip. Patient was found to have a right femoral subcapital fracture and admitted to the hospital on 10/22/20 under orthopedic surgery team with Dr. Hodges. We were consulted for continued medical management throughout patient's hospitalization. In addition to right femoral subcapital fracture patient was also found to have significant hypokalemia upon admission with potassium of 2.3 requiring replacement. Labs otherwise indicated mild leukocytosis with WBC count of 12.4, mild normocytic normochromic anemia with hemoglobin of 12.9, and hypercarbia with carbon dioxide of 34. Covid PCR was negative. Patient underwent right hip hemiarthroplasty on 10/24/20. Physical exam: Patient seen and fully evaluated at the bedside this morning. Patient is postoperative day one this morning. He is doing well. Patient has been ambulatory with assistance to the restroom. He denies having any complaints or concerns at this time. He reports his pain is managed well. He denies having any headache, lightheadedness, dizziness, chest pain, palpitations, shortness of breath, or experiencing any numbness/tingling/weakness. Patient did have slight drop in hemoglobin from 11.1 down to 10.0 otherwise labs unremarkable. Hypokalemia has resolved. Vital signs reviewed and stable. General: Nontoxic, no distress and appears stated age. Derm: Skin warm and dry, normal coloration for ethnicity. Head: Atraumatic, normocephalic and symmetric. Eyes: EOMs intact, no lid lag, and anicteric sclera Mouth: no lip lesions, mucus membranes moist Cardiovascular: regular rate and rhythm with normal S1S2, no murmur, positive posterior tibial pulses bilaterally, and cap refill < 2 seconds. Lungs: Respirations even, regular, and unlabored on room air. Lungs with diffuse soft expiratory wheezes bilaterally. No rales, rhonchi, or crackles and no accessory muscle usage. Abdominal: soft, nontender to palpation, no guarding, no appreciable organomegaly. Rodriguez catheter in place. Ext: Patient with positive shortening and right lateral rotation of right lower extremity. Posterior tibial pulse palpated Neuro: Speech clear, face symmetrical and CN II-XII grossly intact with no noted focal neuro deficits Psych: Alert and oriented to person, place, time, and situation. Appropriate and pleasant affect. Assessment and Plan of Care: Status post right hemiarthroplasty due to closed acute right femoral subcapital fracture resulting from mechanical fall -Pain management, DVT prophylaxis, weightbearing, and PT/OT per primary admitting orthopedic surgery team. -Underwent surgical repair on 10/24/20 Hypokalemia, resolved -We will continue to monitor closely with repeat labs and replace abnormal electrolyte values as needed. Mild anemia -Mild normocytic normochromic anemia with hemoglobin of 10.0. Baseline of 12.9. -No signs of active bleeding at this time, we will continue to monitor closely with repeat a.m. labs. COPD -Provide oxygenation as needed to maintain SpO2 equal to or greater than 90%. Patient remains on room air. -Continue Pulmicort and as needed nebulizer treatments. -Encourage use of incentive spirometry 10-15 times hourly while awake. BPH -Continue daily home regimen with Flomax Thank you for allowing us to participate in the care of this pleasant patient. Do not hesitate to contact us with questions. Someone can be reached from the [facility] hospitalist group all hours of the day at [phone] or via [employer]. Objective - Vital Signs Vital signs: Vital Signs Temp 99 F 10/25/20 07:17 Pulse 88 10/25/20 07:41 Resp 17 10/25/20 07:17 BP 126/74 10/25/20 07:17 Pulse Ox 98 10/25/20 07:17 Intake & Output 10/24/20 10/25/20 10/25/20 18:59 06:59 18:59 Intake Total 1151 Output Total 400 950 Balance 751 -950 Weight 76.2 kg 76 kg Intake: IV 1151 Output: Urine 300 950 Estimated Blood Loss 100 Other: Voiding Method Indwelling Catheter Indwelling Catheter - Labs CBC & Chem 7: 10/25/20 07:06 10/25/20 07:06 Labs: Abnormal Lab Results - Last 24 Hours (Table) 10/24/20 10/25/20 Range/Units 05:37 07:06 WBC 10.24 H (4.50-10.00) X 10*3/uL RBC 3.95 L 3.52 L (4.40-5.60) X 10*6/uL Hgb 11.1 L 10.0 L D (13.0-17.0) g/dL Hct 34.2 L 29.9 L (39.6-50.0) % RDW 15.3 H (11.5-14.5) % Neutrophils # 8.5 H (1.3-7.7) k/uL Lymphocytes # 0.9 L (1.0-4.8) k/uL <Coleen Monroy A - Last Filed: 10/25/20 19:45> Subjective Gurpreet Santiago NP rendered care for this patient independently, reviewed the findings and plan as documented in the note above. I did not physically speak with or examine the patient on this date. Objective - Vital Signs Vital signs: Vital Signs Temp 99.6 F 10/25/20 15:10 Pulse 88 10/25/20 15:35 Resp 18 10/25/20 15:10 BP 129/61 10/25/20 15:10 Pulse Ox 92 L 10/25/20 15:10 Intake & Output 10/25/20 10/25/20 10/26/20 06:59 18:59 06:59 Intake Total 100 Output Total 950 Balance -950 100 Weight 76 kg Intake: Intake, IV Titration 100 Amount ceFAZolin 2 gm In Sodium 100 Chloride 0.9% 50 ml @ 100 mls/hr IVPB Q8H [facility] Rx#: [id number] Output: Urine 950 Other: Voiding Method Indwelling Catheter Indwelling Catheter - Labs CBC & Chem 7: 10/25/20 07:06 10/25/20 07:06 Labs: Abnormal Lab Results - Last 24 Hours (Table) 10/25/20 10/25/20 Range/Units 07:06 07:06 RBC 3.52 L (4.30-5.90) m/uL Hgb 10.0 L D (13.0-17.5) gm/dL Hct 29.9 L (39.0-53.0) % Neutrophils # 8.5 H (1.3-7.7) k/uL Lymphocytes # 0.9 L (1.0-4.8) k/uL Glucose 112 H (70-110) mg/dL Calcium 8.5 L (8.7-10.3) mg/dL
--- NOTE | 2020-10-25 11:47 | P.PN ---
Subjective Progress Note Date: 10/25/20 Principal diagnosis: Status post right hip hemiarthroplasty Patient is evaluated today at bedside, he is resting in his hospital bed. He was able to ambulate with physical therapy early this morning, he did rather well. He is utilizing the abductor pillow while in bed. He is very eager to go home. His pain is currently managed she states. He denies any headaches, lightheadedness, chest pain or shortness of breath. Initial postoperative bandage was changed yesterday evening by myself, was contacted by the nursing staff due to excessive oozing from that area. This rem ained stable at this time. Objective - Vital Signs Vital signs: Vital Signs Temp 99 F 10/25/20 07:17 Pulse 88 10/25/20 11:30 Resp 17 10/25/20 07:17 BP 126/74 10/25/20 07:17 Pulse Ox 98 10/25/20 07:17 Intake & Output 10/24/20 10/25/20 10/25/20 18:59 06:59 18:59 Intake Total 1151 100 Output Total 400 950 Balance 751 -950 100 Weight 76.2 kg 76 kg Intake: IV 1151 Intake, IV Titration 100 Amount ceFAZolin 2 gm In Sodium 100 Chloride 0.9% 50 ml @ 100 mls/hr IVPB Q8H [facility] Rx#: [id number] Output: Urine 300 950 Estimated Blood Loss 100 Other: Voiding Method Indwelling Catheter Indwelling Catheter Indwelling Catheter - Exam Right lower extremity: Postoperative bandages in good position and condition. No obvious drainage or saturation the dressing is noted. There is minimal soft tissue swelling and ecchymosis surrounding the medial and lateral aspects of the incision. Calf is soft, no tenderness with palpation. Plantar flexion, dorsiflexion, EHL, FHL are intact. Sensory exam to light touch throughout the extremity is intact, dorsal pedis pulses 2+. - Labs CBC & Chem 7: 10/25/20 07:06 10/24/20 12:29 Labs: Abnormal Lab Results - Last 24 Hours (Table) 10/25/20 Range/Units 07:06 RBC 3.52 L (4.30-5.90) m/uL Hgb 10.0 L D (13.0-17.5) gm/dL Hct 29.9 L (39.0-53.0) % Neutrophils # 8.5 H (1.3-7.7) k/uL Lymphocytes # 0.9 L (1.0-4.8) k/uL Assessment and Plan Assessment: Postoperative day #1 status post right hip hemiarthroplasty Acute blood loss anemia, expected surgical outcome Plan: Pain control, continue with current medication GI and DVT prophylaxis, continue with current medication Ferrous sulfate 325 mg twice a day will be started for anemia Weight-bear as tolerated with walker Continue use of abductor pillow while in bed Continue posterior hip precautions Encourage incentive spirometer Dressing change on 10/26/2020 Medical recommendations Discharge planning: Discussed with patient that I would like to keep him in hospital total 10/27/2020, plan will be for discharge to home with home healthcare, this to include nursing and therapy Time with Patient: Less than 30
[2020-10-25 11:54] LABS: African American GFR (CKD) 93.2 (60.0-200.0); Anion Gap 7.9 mmol/L (4.00-12.00); Calcium 8.5 mg/dL (8.7-10.3); Carbon Dioxide 29.1 mmol/L (21.6-31.8); Magnesium 1.9 mg/dL (1.5-2.4); Non-African American GFR(CKD) 80.4 (60.0-200.0); Potassium 4.1 mmol/L (3.5-5.5)
[2020-10-25] MEDS: ENOXAPARIN 30 MG/0.3 ML SYRINGE SQ SCH ×2 (15:42→22:50)
[2020-10-25] MEDS: FERROUS SULFATE 325 MG TAB PO SCH (17:05)
[2020-10-25] MEDS: HYDROcodone/APAP 5-325MG 1 EACH TAB PO PRN (21:28)
[2020-10-25] MEDS: SENNOSIDES-DOCUSATE SODIUM 1 EACH TAB PO SCH (21:28)
[2020-10-26] MEDS: ENOXAPARIN 30 MG/0.3 ML SYRINGE SQ SCH ×2 (07:16→20:04)
[2020-10-26] MEDS: METOPROLOL TARTRATE 12.5 MG TAB PO SCH ×2 (07:16→20:03)
[2020-10-26] MEDS: lisinopriL 10 MG TAB PO SCH (07:17)
[2020-10-26] MEDS: TAMSULOSIN 0.4 MG CAP.ER.24H PO SCH (07:17)
[2020-10-26] MEDS: FERROUS SULFATE 325 MG TAB PO SCH ×2 (07:17→17:18)
[2020-10-26] MEDS: BUDESONIDE 0.5 MG/2 ML NEBU INHALATION PRN ×2 (08:50→20:41)
[2020-10-26] MEDS: IPRATROPIUM-ALBUTEROL 3 ML NEB INHALATION SCH ×4 (08:50→20:40)
--- NOTE | 2020-10-26 10:01 | P.PN ---
<Gurpreet Santiago - Last Filed: 10/26/20 09:53> Subjective Progress Note Date: 10/26/20 Hospital course: Patient is a very pleasant 80-year-old male with a past medical history of COPD not home oxygen dependent, hypertension, and BPH. Patient reports that he works at an [employer] and was retiring on November 07, however while at work he tripped and fell resulting in instant pain to his right hip. Patient was found to have a right femoral subcapital fracture and admitted to the hospital on 10/22/20 under orthopedic surgery team with Dr. Hodges. We were consulted for continued medical management throughout patient's hospitalization. In addition to right femoral subcapital fracture patient was also found to have significant hypokalemia upon admission with potassium of 2.3 requiring replacement. Labs otherwise indicated mild leukocytosis with WBC count of 12.4, mild normocytic normochromic anemia with hemoglobin of 12.9, and hypercarbia with carbon dioxide of 34. Covid PCR was negative. Patient underwent right hip hemiarthroplasty on 10/24/20. Physical exam: Patient seen and fully evaluated at the bedside this morning. Patient is postoperative day 2 this morning. He is doing well. Patient has been ambulatory with assistance to the Bedside commode and to and from bed to chair. He reports very comfortable lying in bed and in recliner but did have significant pain while sitting on the edge of the bed. PT at bedside working with patient at this time. He denies having any Further complaints or concerns at this time including headache, lightheadedness, dizziness, chest pain, palpitations, shortness of breath, or experiencing any numbness/tingling/weakness. Awaiting morning labs to result. Vital signs reviewed and stable. General: Nontoxic, no distress and appears stated age. Derm: Skin warm and dry, normal coloration for ethnicity. Head: Atraumatic, normocephalic and symmetric. Eyes: EOMs intact, no lid lag, and anicteric sclera Mouth: no lip lesions, mucus membranes moist Cardiovascular: regular rate and rhythm with normal S1S2, no murmur, positive posterior tibial pulses bilaterally, and cap refill < 2 seconds. Lungs: Respirations even, regular, and unlabored on room air. Lungs with diffuse soft expiratory wheezes bilaterally. No rales, rhonchi, or crackles and no accessory muscle usage. Abdominal: soft, nontender to palpation, no guarding, no appreciable organomegaly. Rodriguez catheter in place. Ext: Patient with positive Dressing right hip, clean dry and intact with no sig ns of bleeding or drainage noted. Movement and sensation remains intact. Neuro: Speech clear, face symmetrical and CN II-XII grossly intact with no noted focal neuro deficits Psych: Alert and oriented to person, place, time, and situation. Appropriate and pleasant affect. Assessment and Plan of Care: Status post right hemiarthroplasty due to closed acute right femoral subcapital fracture resulting from mechanical fall, postoperative day 2 -Pain management, DVT prophylaxis, weightbearing, and PT/OT per primary admitting orthopedic surgery team. Patient currently on DVT prophylaxis with Lovenox. -Underwent surgical repair on 10/24/20 Hypokalemia, resolved -We will continue to monitor closely with repeat labs and replace abnormal electrolyte values as needed. Mild anemia -Mild normocytic normochromic anemia with hemoglobin of 10.0. Baseline of 12.9. -No signs of active bleeding at this time, we will continue to monitor closely with repeat a.m. labs. COPD -Provide oxygenation as needed to maintain SpO2 equal to or greater than 90%. Patient remains on room air. -Continue Pulmicort and as needed nebulizer treatments. -Encourage use of incentive spirometry 10-15 times hourly while awake. BPH -Continue daily home regimen with Flomax Thank you for allowing us to participate in the care of this pleasant patient. Do not hesitate to contact us with questions. Someone can be reached from the [facility] hospitalist group all hours of the day at [phone] or via [employer]. Objective - Vital Signs Vital signs: Vital Signs Temp 98.5 F 10/26/20 00:52 Pulse 84 10/26/20 00:52 Resp 15 10/26/20 00:52 BP 95/48 10/26/20 00:52 Pulse Ox 92 L 10/26/20 00:52 Intake & Output 10/25/20 10/26/20 10/26/20 18:59 06:59 18:59 Intake Total 100 Output Total 200 Balance 100 -200 Weight 72.7 kg Intake: Intake, IV Titration 100 Amount ceFAZolin 2 gm In Sodium 100 Chloride 0.9% 50 ml @ 100 mls/hr IVPB Q8H [facility] Rx#: [id number] Output: Urine 200 Other: Voiding Method Indwelling Catheter Indwelling Catheter - Labs CBC & Chem 7: 10/25/20 07:06 10/25/20 07:06 Labs: Abnormal Lab Results - Last 24 Hours (Table) 10/25/20 10/25/20 Range/Units 07:06 07:06 RBC 3.52 L (4.30-5.90) m/uL Hgb 10.0 L D (13.0-17.5) gm/dL Hct 29.9 L (39.0-53.0) % Neutrophils # 8.5 H (1.3-7.7) k/uL Lymphocytes # 0.9 L (1.0-4.8) k/uL Glucose 112 H (70-110) mg/dL Calcium 8.5 L (8.7-10.3) mg/dL <Coleen Monroy A - Last Filed: 10/26/20 17:57> Objective - Vital Signs Vital signs: Vital Signs Temp 100.2 F H 10/26/20 14:04 Pulse 102 H 10/26/20 16:51 Resp 18 10/26/20 14:04 BP 116/63 10/26/20 14:04 Pulse Ox 92 L 10/26/20 14:04 Intake & Output 10/25/20 10/26/20 10/26/20 18:59 06:59 18:59 Intake Total 100 Output Total 200 Balance 100 -200 Weight 72.7 kg Intake: Intake, IV Titration 100 Amount ceFAZolin 2 gm In Sodium 100 Chloride 0.9% 50 ml @ 100 mls/hr IVPB Q8H [facility] Rx#: [id number] Output: Urine 200 Other: Voiding Method Indwelling Catheter Indwelling Catheter # Voids 2 - Labs CBC & Chem 7: 10/26/20 05:14 10/26/20 05:14 Labs: Abnormal Lab Results - Last 24 Hours (Table) 10/26/20 10/26/20 Range/Units 05:14 05:14 RBC 3.13 L (4.40-5.60) X 10*6/uL Hgb 8.6 L (13.0-17.0) g/dL Hct 27.4 L (39.6-50.0) % MCHC 31.4 L (32.0-37.0) g/dL RDW 15.4 H (11.5-14.5) % Calcium 8.4 L (8.7-10.3) mg/dL Assessment and Plan Assessment: Gurpreet Santiago NP rendered care for this patient independently, reviewed the findings and plan as documented in the note above. I did not physically speak with or examine the patient on this date. Patient with mild fever and was planning on discharging tomorrow after his fracture. We'll check urinalysis and chest x-ray. Continue to monitor.
[2020-10-26 11:13] LABS: HCT 27.4 % (39.6-50.0); HGB 8.6 g/dL (13.0-17.0); MCH 27.5 pg (27.0-32.0); MCHC 31.4 g/dL (32.0-37.0); MCV 87.5 fL (80.0-97.0); Mean Platelet Volume 10.7 fL (9.5-12.2); Platelet Count 162 X 10*3/uL (140-440); RBC 3.13 X 10*6/uL (4.40-5.60); RDW 15.4 % (11.5-14.5); WBC 8.13 X 10*3/uL (4.50-10.00)
--- NOTE | 2020-10-26 11:14 | P.PN ---
Subjective Progress Note Date: 10/26/20 Principal diagnosis: Status post right hip hemiarthroplasty Patient is evaluated today at bedside, he is resting in his hospital bed. He was actually getting up with any today to use the restroom. He has been utilizing a walker for ambulation. He states that the right hip pain is tolerable at this time. He currently denies any headaches, lightheadedness, chest pain or shortness of breath. Objective - Vital Signs Vital signs: Vital Signs Temp 99.4 F 10/26/20 07:13 Pulse 100 10/26/20 09:05 Resp 17 10/26/20 07:13 BP 126/63 10/26/20 07:13 Pulse Ox 91 L 10/26/20 07:13 Intake & Output 10/25/20 10/26/20 10/26/20 18:59 06:59 18:59 Intake Total 100 Output Total 200 Balance 100 -200 Weight 72.7 kg Intake: Intake, IV Titration 100 Amount ceFAZolin 2 gm In Sodium 100 Chloride 0.9% 50 ml @ 100 mls/hr IVPB Q8H [facility] Rx#: [id number] Output: Urine 200 Other: Voiding Method Indwelling Catheter Indwelling Catheter # Voids 2 - Exam Right lower extremity: Postoperative bandages in good position and condition. No obvious drainage or saturation the dressing is noted. There is minimal soft tissue swelling and ecchymosis surrounding the medial and lateral aspects of the incision. Calf is soft, no tenderness with palpation. Plantar flexion, dorsiflexion, EHL, FHL are intact. Sensory exam to light touch throughout the extremity is intact, dorsal pedis pulses 2+. - Labs CBC & Chem 7: 10/25/20 07:06 10/25/20 07:06 Labs: Abnormal Lab Results - Last 24 Hours (Table) 10/25/20 Range/Units 07:06 Glucose 112 H (70-110) mg/dL Calcium 8.5 L (8.7-10.3) mg/dL Assessment and Plan Assessment: Postoperative day #2 status post right hip hemiarthroplasty Acute blood loss anemia, expected surgical outcome Plan: Pain control, continue with current medication GI and DVT prophylaxis, continue with current medication Ferrous sulfate 325 mg twice a day will be started for anemia Weight-bear as tolerated with walker Continue use of abductor pillow while in bed Continue posterior hip precautions Encourage incentive spirometer Postoperative dressing remains in good condition and position, will change tomorrow at bedside Medical recommendations Discharge planning: Planning for discharge home tomorrow with home health care, including therapy and nursing Time with Patient: Less than 30
[2020-10-26 12:04] LABS: African American GFR (CKD) 93.2 (60.0-200.0); Anion Gap 6.6 mmol/L (4.00-12.00); BUN/Creat Ratio 18.89 Ratio (12.00-20.00); Calcium 8.4 mg/dL (8.7-10.3); Carbon Dioxide 29.4 mmol/L (21.6-31.8); Magnesium 1.9 mg/dL (1.5-2.4); Non-African American GFR(CKD) 80.4 (60.0-200.0); Potassium 4.2 mmol/L (3.5-5.5)
--- NOTE | 2020-10-26 18:46 | XR ---
EXAMINATION TYPE: XR chest 1V portable DATE OF EXAM: 10/26/2020 COMPARISON: NONE HISTORY: Short of breath TECHNIQUE: Single view FINDINGS: There is no heart failure nor confluent pneumonic infiltrate. Costophrenic angles are clear . Thoracic aorta is atheromatous. There is some pleural thickening at the right lung apex. There are no hilar masses. IMPRESSION: No active cardiopulmonary disease. Normal heart.
[2020-10-26] MEDS: SENNOSIDES-DOCUSATE SODIUM 1 EACH TAB PO SCH (20:05)
[2020-10-26 23:57] LABS: Appearance,Urine Clear (Clear); Bacteria,Urine Rare /hpf; Bilirubin,Urine Negative (Negative); Blood,Urine Negative (Negative); Color,Urine Yellow; Glucose,Urine (UA) Negative (Negative); Ketones,Urine Negative (Negative); Leukocyte Esterase,Urine Negative (Negative); Mucus,Urine Rare /hpf; Nitrite,Urine Negative (Negative); Protein,Urine 1+ (Negative); RBC,Urine 1 /hpf (0-5); Specific Gravity,Urine 1.015 (1.001-1.035); Urobilinogen,Urine <2.0 mg/dL (<2.0); WBC,Urine 1 /hpf (0-5)
[2020-10-27] MEDS: IPRATROPIUM-ALBUTEROL 3 ML NEB INHALATION SCH ×3 (07:40→16:02)
[2020-10-27] MEDS: BUDESONIDE 0.5 MG/2 ML NEBU INHALATION PRN (07:43)
[2020-10-27] MEDS: METOPROLOL TARTRATE 12.5 MG TAB PO SCH (07:58)
[2020-10-27] MEDS: TAMSULOSIN 0.4 MG CAP.ER.24H PO SCH (07:59)
[2020-10-27] MEDS: FERROUS SULFATE 325 MG TAB PO SCH (07:59)
[2020-10-27] MEDS: ENOXAPARIN 30 MG/0.3 ML SYRINGE SQ SCH (07:59)
[2020-10-27] MEDS: lisinopriL 10 MG TAB PO SCH (07:59)
[2020-10-27 08:21] VITALS: RESP 18
[2020-10-27 09:23] LABS: HCT 26.9 % (39.6-50.0); HGB 8.6 g/dL (13.0-17.0); MCH 27.6 pg (27.0-32.0); MCV 86.2 fL (80.0-97.0); Mean Platelet Volume 10.4 fL (9.5-12.2); Platelet Count 184 X 10*3/uL (140-440); RBC 3.12 X 10*6/uL (4.40-5.60); RDW 14.8 % (11.5-14.5); WBC 8.56 X 10*3/uL (4.50-10.00)
[2020-10-27 09:44] LABS: African American GFR (CKD) 97.8 (60.0-200.0); Anion Gap 6.9 mmol/L (4.00-12.00); BUN/Creat Ratio 17.5 Ratio (12.00-20.00); Calcium 8.2 mg/dL (8.7-10.3); Carbon Dioxide 29.1 mmol/L (21.6-31.8); Magnesium 2.1 mg/dL (1.5-2.4); Non-African American GFR(CKD) 84.4 (60.0-200.0); Potassium 3.6 mmol/L (3.5-5.5)
--- NOTE | 2020-10-27 11:02 | P.PN ---
<Gurpreet Santiago - Last Filed: 10/27/20 10:56> Subjective Progress Note Date: 10/27/20 Hospital course: Patient is a very pleasant 80-year-old male with a past medical history of COPD not home oxygen dependent, hypertension, and BPH. Patient reports that he works at an [employer] and was retiring on November 07, however while at work he tripped and fell resulting in instant pain to his right hip. Patient was found to have a right femoral subcapital fracture and admitted to the hospital on 10/22/20 under orthopedic surgery team with Dr. Hodges. We were consulted for continued medical management throughout patient's hospitalization. In addition to right femoral subcapital fracture patient was also found to have significant hypokalemia upon admission with potassium of 2.3 requiring replacement. Labs otherwise indicated mild leukocytosis with WBC count of 12.4, mild normocytic normochromic anemia with hemoglobin of 12.9, and hypercarbia with carbon dioxide of 34. Covid PCR was negative. Patient underwent right hip hemiarthroplasty on 10/24/20. Physical exam: Patient seen and fully evaluated at the bedside this morning. Patient is postoperative day 3 this morning. He is doing well. Patient was noted to to have elevated temperature of 100.2, no signs of infection at this time. Urinalysis and chest x-ray repeated which were both negative for acute process/infection. Pt denies any other complaints or concerns Such as headache, lightheadedness, chills, diaphoresis, cough, congestion, shortness of breath, or experiencing any changes in or difficulties with his urinary function. He states post-operative pain is being managed at this time. Hemoglobin remains stable at 8.6. Medically, patient is stable for discharge home at this time pending clearance by primary orthopedic service team.. Vital signs reviewed and stable. General: Nontoxic, no distress and appears stated age. Derm: Skin warm and dry, normal coloration for ethnicity. Head: Atraumatic, normocephalic and symmetric. Eyes: EOMs intact, no lid lag, and anicteric sclera Mouth: no lip lesions, mucus membranes moist Cardiovascular: regular rate and rhythm with normal S1S2, no murmur, positive posterior tibial pulses bilaterally, and cap refill < 2 seconds. Lungs: Respirations even, regular, and unlabored on room air. Lungs with diffuse soft expiratory wheezes bilaterally. No rales, rhonchi, or crackles and no accessory muscle usage. Abdominal: Soft, nontender to palpation, no guarding, no appreciable organomegaly. Rodriguez catheter in place. Ext: Patient with positive Dressing right hip, clean dry and intact with no signs of bleeding or drainage noted. Movement and sensation remains intact. Neuro: Speech clear, face symmetrical and CN II-XII grossly intact with no noted focal neuro deficits Psych: Alert and oriented to person, place, time, and situation. Appropriate and pleasant affect. Assessment and Plan of Care: Status post right hemiarthroplasty due to closed acute right femoral subcapital fracture resulting from mechanical fall, postoperative day 2 -Pain management, DVT prophylaxis, weightbearing, and PT/OT per primary admitting orthopedic surgery team. Patient currently on DVT prophylaxis with Lovenox. -Underwent surgical repair on 10/24/20 Hypokalemia, resolved -We will continue to monitor closely with repeat labs and replace abnormal electrolyte values as needed. Acute blood loss anemia on chronic anemia, stable -No signs of active bleeding at this time, we will continue to monitor closely with repeat a.m. labs. COPD -Provide oxygenation as needed to maintain SpO2 equal to or greater than 90%. Patient remains on room air. -Continue Pulmicort and as needed nebulizer treatments. -Encourage use of incentive spirometry 10-15 times hourly while awake. BPH -Continue daily home regimen with Flomax Thank you for allowing us to participate in the care of this pleasant patient. Do not hesitate to contact us with questions. Someone can be reached from the [facility] hospitalist group all hours of the day at [phone] or via perfect serve. Objective - Vital Signs Vital signs: Vital Signs Temp 98.0 F 10/27/20 01:23 Pulse 98 10/27/20 07:53 Resp 15 10/27/20 01:23 BP 135/67 10/27/20 01:23 Pulse Ox 95 10/27/20 01:23 Intake & Output 10/26/20 10/27/20 10/27/20 18:59 06:59 18:59 Output Total 300 Balance -300 Weight 110 kg Output: Urine 300 Other: Voiding Method Urinal # Voids 2 - Labs CBC & Chem 7: 10/27/20 06:11 10/27/20 06:11 Labs: Abnormal Lab Results - Last 24 Hours (Table) 10/26/20 10/26/20 10/26/20 Range/Units 05:14 05:14 23:30 RBC 3.13 L (4.40-5.60) X 10*6/uL Hgb 8.6 L (13.0-17.0) g/dL Hct 27.4 L (39.6-50.0) % MCHC 31.4 L (32.0-37.0) g/dL RDW 15.4 H (11.5-14.5) % Calcium 8.4 L (8.7-10.3) mg/dL Urine Protein 1+ H (Negative) Urine Bacteria Rare H (None) /hpf Urine Mucus Rare H (None) /hpf <Coleen Monroy - Last Filed: 10/27/20 13:22> Objective - Vital Signs Vital signs: Vital Signs Temp 98.5 F 10/27/20 08:20 Pulse 92 10/27/20 12:03 Resp 18 10/27/20 08:20 BP 149/52 10/27/20 08:20 Pulse Ox 97 10/27/20 08:20 Intake & Output 10/26/20 10/27/20 10/27/20 18:59 06:59 18:59 Output Total 300 200 Balance -300 -200 Weight 110 kg Output: Urine 300 200 Other: Voiding Method Urinal Urinal # Voids 2 - Labs CBC & Chem 7: 10/27/20 06:11 10/27/20 06:11 Labs: Abnormal Lab Results - Last 24 Hours (Table) 10/26/20 10/27/20 10/27/20 Range/Units 23:30 06:11 06:11 RBC 3.12 L (4.40-5.60) X 10*6/uL Hgb 8.6 L (13.0-17.0) g/dL Hct 26.9 L (39.6-50.0) % RDW 14.8 H (11.5-14.5) % Calcium 8.2 L (8.7-10.3) mg/dL Urine Protein 1+ H (Negative) Urine Bacteria Rare H (None) /hpf Urine Mucus Rare H (None) /hpf Assessment and Plan Assessment: Gurpreet Santiago NP rendered care for this patient independently, reviewed the findings and plan as documented in the note above. I did not physically speak with or examine the patient on this date.
--- NOTE | 2020-10-27 11:27 | P.PN ---
Subjective Progress Note Date: 10/27/20 Principal diagnosis: Status post right hip hemiarthroplasty Patient is evaluated today at bedside, he is resting in his hospital bed. Did visualize the patient ambulating with physical therapy today. When discussing discharge, patient's abdomen he wants to go home, he will neck rehab. With regards to the hip, he notes improvement. He currently denies any headaches, lightheadedness, chest pain or shortness of breath. Objective - Vital Signs Vital signs: Vital Signs Temp 98.5 F 10/27/20 08:20 Pulse 97 10/27/20 08:20 Resp 18 10/27/20 08:20 BP 149/52 10/27/20 08:20 Pulse Ox 97 10/27/20 08:20 Intake & Output 10/26/20 10/27/20 10/27/20 18:59 06:59 18:59 Output Total 300 200 Balance -300 -200 Weight 110 kg Output: Urine 300 200 Other: Voiding Method Urinal Urinal # Voids 2 - Exam Right lower extremity: Bandage was removed today at bedside, gage are all in good position and condition. There is minimal soft tissue swelling and ecchymosis surrounding the medial and lateral aspects of the incision. Calf is soft, no tenderness with palpation. Plantar flexion, dorsiflexion, EHL, FHL are intact. Sensory exam to light touch throughout the extremity is intact, dorsal pedis pulses 2+. - Labs CBC & Chem 7: 10/27/20 06:11 10/27/20 06:11 Labs: Abnormal Lab Results - Last 24 Hours (Table) 10/26/20 10/26/20 10/27/20 Range/Units 05:14 23:30 06:11 RBC 3.12 L (4.40-5.60) X 10*6/uL Hgb 8.6 L (13.0-17.0) g/dL Hct 26.9 L (39.6-50.0) % RDW 14.8 H (11.5-14.5) % Calcium 8.4 L (8.7-10.3) mg/dL Urine Protein 1+ H (Negative) Urine Bacteria Rare H (None) /hpf Urine Mucus Rare H (None) /hpf 10/27/20 Range/Units 06:11 RBC (4.40-5.60) X 10*6/uL Hgb (13.0-17.0) g/dL Hct (39.6-50.0) % RDW (11.5-14.5) % Calcium 8.2 L (8.7-10.3) mg/dL Urine Protein (Negative) Urine Bacteria (None) /hpf Urine Mucus (None) /hpf Assessment and Plan Assessment: Postoperative day #3 status post right hip hemiarthroplasty Acute blood loss anemia, expected surgical outcome Plan: Pain control, plan for discharge home on oral medication GI and DVT prophylaxis, aspirin 325 mg once a day for 1 month Ferrous sulfate 325 mg twice a day at discharge Weight-bear as tolerated with walker Continue use of abductor pillow while in bed Continue posterior hip precautions Encourage incentive spirometer Medical recommendations Discharge planning: Had a long discussion today with patient regarding discharge. They are recommending rehab, patient is refusing this today. He states that he will have multiple family members around to help him. We plan to utilize home health care, this including nursing and physical therapy. Patient understands the risk and so would like to go home. Plan for discharge home today Time with Patient: Less than 30
--- NOTE | 2020-10-27 11:38 | P.DS ---
Providers Date of admission: 10/22/20 19:13 Expected date of discharge: 10/27/20 Attending physician: Panfilo Hodges DO Consults: 10/22/20 19:13 Consult Physician Urgent Consulting Provider: Carter Robles Consult Reason/Comments: Medical clearance Do you want consulting provider notified?: Yes Primary care physician: Kt Wolf MD Hospital Course: Date of admission: 10/22/2020 Date of discharge: 10/27/2020 Admission diagnosis: Displaced right subcapital femur fracture Discharge diagnosis: Status post right hip hemiarthroplasty Attending physician: Dr. Hodges Surgical procedures: Right hip hemiarthroplasty Brief history: Patient is a 80-year-old male who presented to [facility] on 10/22/2020 after falling and injuring lower extremity. Imaging test demonstrated a displaced subcapital right femur fracture. He was admitted under orthopedic care with plan for surgical intervention. Internal medicine was placed on consult for clearance and management. Patient underwent surgery on 10/24/2020. Hospital course: Details of patient's surgery can be found in operative report. Patient tolerated the procedure well and was subsequently transported to orthopedic floor. Patient's orthopeidc and medical care was provided daily. Patient had daily laboratory tests performed for evaluation of overall blood counts. Patient had daily physical therapy to include strengthening range of motion as well as education with walker ambulation. Patient was treated with Lovenox for their postoperative DVT prophylaxis during their inpatient stay. Patient was noted to have a relatively uneventful postoperative course. Patient reported satisfactory pain control with oral pain medications by postoperative day 0. Patient showed satisfactory progress with physical therapy. Patient moved steadily through the program and had no difficulty meeting the goals by postoperative day 3. Given patient's otherwise satisfactory course and having met physical therapy goals, plan is to discharge patient home on postoperative day 3. Discharge condition/disposition: Patient will be discharged home in stable condition. Discharge medications: Instructions are given on resumption of patient's normal daily medications per primary care recommendation, in addition patient will be prescribed [place] 5 mg/325 mg, Colace 100 mg, aspirin 325 mg, ferrous sulfate 325 mg. Discharge instructions: 1. Wound care and infection precautions, keep incision dry and covered while showering, no lotions, creams, moisturizers. No soaking, tubs, pools, hottubs. Do not scrub over the incision. 2. Weight-bear as tolerated with walker / cane until follow-up. Posterior hip precautions, utilize abductor pillow while in bed 3. Ice and elevate when necessary. Do not exceed 20 minutes per hour with ice pack. 4. Utilize compression sleeve until seen at first follow up appointment. 5. Visiting nursing care. 6. Home physical therapy 7. Pain meds and anticoagulants per prescription. 8. Pain medication has potential to cause constipation. Increase oral fluid and fiber intake. Contact primary care provider if you have not had a bowel movement within 48 hours after discharge 9. No anti-inflammatory medication until discussed at first post operative visit, this including Motrin, Aleve, Mobic, Diclofenac 10. Follow up in office at [address] Hodges 11. Follow up with your primary care doctor 7-10 days after discharge. 12. Contact [facility] with any questions, . Procedures: Right hip hemiarthroplasty Patient Condition at Discharge: Fair Plan - Discharge Summary Discharge Rx Participant: No New Discharge Prescriptions: New Docusate [Colace] 100 mg PO DAILY #30 cap Aspirin 325 mg PO DAILY #30 tab Ferrous Sulfate [Iron (65 MG Elemental)] 325 mg PO BID #40 tab HYDROcodone/APAP 5-325MG [[place] 5-325] 1 tab PO Q6HR PRN 3 Days #28 tab PRN Reason: Pain Continue Potassium Chloride ER [K-Dur 10] 10 meq PO DAILY Ipratropium-Albuterol Nebulize [Duoneb 0.5 mg-3 mg/3 ml Soln] 3 ml INHALATION RT-QID PRN PRN Reason: Shortness Of Breath Budesonide [Pulmicort] 0.5 mg INHALATION RT-BID PRN PRN Reason: Shortness Of Breath lisinopriL [Zestril] 10 mg PO DAILY Tamsulosin [Flomax] 0.4 mg PO DAILY Fluticasone Nasal Birney [Flonase Nasal Birney] 2 spr EA NOSTRIL DAILY PRN PRN Reason: Allergy Symptoms Metoprolol Tartrate [Lopressor] 12.5 mg PO BID Furosemide [Lasix] 20 - 40 mg PO DAILY PRN PRN Reason: Edema Discharge Medication List Budesonide [Pulmicort] 0.5 mg INHALATION RT-BID PRN 10/22/20 [History] Fluticasone Nasal Birney [Flonase Nasal Birney] 2 spr EA NOSTRIL DAILY PRN 10/22/20 [History] Furosemide [Lasix] 20 - 40 mg PO DAILY PRN 10/22/20 [History] Ipratropium-Albuterol Nebulize [Duoneb 0.5 mg-3 mg/3 ml Soln] 3 ml INHALATION RT-QID PRN 10/22/20 [History] Metoprolol Tartrate [Lopressor] 12.5 mg PO BID 10/22/20 [History] Potassium Chloride ER [K-Dur 10] 10 meq PO DAILY 10/22/20 [History] Tamsulosin [Flomax] 0.4 mg PO DAILY 10/22/20 [History] lisinopriL [Zestril] 10 mg PO DAILY 10/22/20 [History] Aspirin 325 mg PO DAILY #30 tab 10/27/20 [Rx] Docusate [Colace] 100 mg PO DAILY #30 cap 10/27/20 [Rx] Ferrous Sulfate [Iron (65 MG Elemental)] 325 mg PO BID #40 tab 10/27/20 [Rx] HYDROcodone/APAP 5-325MG [[place] 5-325] 1 tab PO Q6HR PRN 3 Days #28 tab 10/27/20 [Rx] Follow up Appointment(s)/Referral(s): [facility], [NON-STAFF] - 1-2 Days Kt Wolf MD [Primary Care Provider] - 10/29/20 8:45 am Panfilo Hodges DO [Doctor of Osteopathic Medicine] - 11/07/20 11:00 am Ambulatory/Diagnostic Orders: Complete Blood Count w/diff [LAB.AMB] Location: None Selected Activity/Diet/Wound Care/Special Instructions: Activity: As tolerated, take things slow and steady! Diet: Heart Healthy Day Special Instructions: Monitor temp at home, if you spike a fever > 100.4F, you'll need to notify your primary care doctor-Dr. Wolf as well as your orthopedic Surgeon's office, Dr. Gomez. It was truly a pleasure having the opportunity to participate in your care!!!! Remember, try not overdo it when you get back to your beautiful [place] with that gorgeous garden!!!! Continue incentive spirometry 10-15 times per day. Orthopedic Discharge Instructions: 1. Wound care and infection precautions, keep incision dry and covered while showering, no lotions, creams, moisturizers. No soaking, pools, hot tubs. Do not scrub over incision. 2. Weight-bear as tolerated with walker / cane until follow-up. Posterior hip precautions, utilize abductor pillow while in bed 3. Ice and elevate when necessary. Do not exceed 20 minutes per hour with ice pack. 4. Utilize compression sleeve until seen at first follow up appointment. 5. Pain meds and anticoagulants per prescription. 6. Pain medication has potential to cause constipation. Increase oral fluid and fiber intake. Contact primary care provider if you have not had a bowel movement within 48 hours after discharge. 7. No anti-inflammatory medication until discussed at first post operative visit, this including Motrin, Aleve, Mobic, Diclofenac 8. Follow up in office at [address] Hodges 9. Follow up with your primary care doctor 7-10 days after discharge. 10. Contact [facility] with any questions, . Discharge Disposition: HOME WITH HOME HEALTH SERVICES
[2020-10-27 14:23] VITALS: BP 123/70; PULSE 101; TEMP 98.8
--- NOTE | 2020-10-27 16:51 | OP ---
OPERATIVE REPORT DATE OF SERVICE: 10/24/2020. PREOPERATIVE DIAGNOSIS: Right femoral neck fracture. POSTOPERATIVE DIAGNOSIS: Right femoral neck fracture. PROCEDURE: Right hip hemiarthroplasty. IMPLANTS: Bruno and Nephew polar stem, size 7 femur, collared with standard neck, 52 bipolar head with 28 inner diameter. ANESTHESIA: Spinal with sedation. EBL: 150. FLUIDS: One thousand two hundred. Urine output 75. DISPOSITION: Stable to postoperative care unit. INDICATIONS FOR PROCEDURE: This 80-year-old male presented to [facility] after a fall from standing at work. He states that he was at work, tripped over something and fell onto his right hip. He had immediate pain and inability to ambulate afterwards. He was brought to the hospital and found to have a right femoral neck fracture. He was admitted to the hospital and subsequently underwent workup. In the hospital, his potassium was found to be very low and so this postponed our surgery. However, once this was recovered, he was able to go to surgery and was cleared by Medicine as well as Cardiology and anesthesia for operative fixation. We discussed risks and benefits of the procedure including risk of bleeding, infection, damage to surrounding tissue, risk of reoperation, risk of anesthesia up to including . He was willing to assume these risks and all risks of surgery as outlined in the risk review. The patient was seen preoperatively. All preoperative protocols followed. The patient was deemed fit by Department of anesthesia for surgery. The site was marked. Consent was confirmed. The patient was n.p.o. he was ready and willing to proceed with the procedure. OPERATIVE COURSE: Patient was transferred to the operative suite, placed supine on operative table. Then spinal anesthetic was administered by the Department of Anesthesia. Once adequate anesthesia had been obtained, the patient was transferred into the lateral position with his right hip up. Axillary roll was placed underneath the patient's left axilla. His arms were well padded and placed on arm boards as well as pill board. He was placed on a pegboard and pegs were placed accordingly. His lower extremity that was down was padded accordingly over the peroneal nerve, ankle and foot and all other bony prominences were padded accordingly. He was secured to the table with a safety strap as well as tape. 10/15 were placed around the operative area. Once in position, a briefing was performed and everybody was in agreement and ready to proceed. The patient's right leg was then prepped and draped in normal sterile fashion. Time-out was performed. All parties in agreement with the procedure to be performed. Standard posterior approach to the hip was performed. We incised the tensor fascia bang in line with its fibers. A Charnley retractor was placed and then identified the posterior external rotators. We did release these and tagged them with 0-Vicryl. Capsulotomy was performed. This was also tagged. The hip was then internally rotated and abducted. A cleanup cut was made on the femoral neck due to a lot of comminution as well as shards, which precluded us getting out the large femoral head. This was made and then retractors placed. A corkscrew was then placed in the femoral head and this was removed from the acetabulum. Acetabulum was inspected and irrigated. The cartilage was intact and the acetabulum had a healthy look to it. We then proceeded with sequential reaming of the femur and broaching. This was done sequentially. We lateralized using lateralizer as well as box osteotome. Once we obtained the femoral stem that was a good fit at size 7, we trialed this with a standard neck and a +0 head. This was then reduced atraumatically and the leg lengths were checked as well as the range of motion. Leg lengths were now equal. Range of motion was stable. The patient was not dislocating in vulnerable positions on the table. We then atraumatically dislocated the hip once again. The trial was removed. The broach remained stable and so this was selected. We then irrigated the wound copiously with normal sterile saline pulse lavage. We then selected the final femoral stem and impacted into place. We then impacted the bipolar head and tested it and it was stable. I then once again atraumatically reduced the hip and took it through range of motion and checked leg lengths. Leg lengths were equal and the range of motion was stable. We then copiously irrigated once again with normal sterile saline. The posterior capsule repair was then performed. 2-0 drill bit was used to drill 3 holes in the posterior aspect of the greater trochanter. Ethibond stitch was then placed into the piriformis tendon, as well as the short external rotators. These were tied securely to the posterior aspect of the greater trochanter. This was then oversewn with another Ethibond stitch. It was taken through range of motion was stable. The patient's leg was then placed on a well-padded Bruner stand and the tensor fascia bang was then closed with #1 Vicryl in a running locking fashion. We then irrigated the superficial soft tissue once again. We then closed the deep subcu tissue with 0-Vicryl. The superficial subcu tissue with 2-0 Vicryl, and the skin with skin gage. The wound edges approximated very well. The patient was then awakened by the Department of Anesthesia and placed back onto his hospital bed atraumatically having tolerated the procedure with no complications. He was then transferred to the postoperative care unit in stable condition. MMODL / IJN: [id number] /
== END 2020-10-27 16:09 | disposition home health service (06) | DRG 522 ==
LOC: EC 18:26 → 4SSUR 19:13
PROVIDERS: ADMIT Orthopaedic Surgery; ATTEND Orthopaedic Surgery
PROC: 0SRR0JZ Replacement of Right Hip Joint, Femoral Surface with Synthetic Substitute, Open Approach (ICD-10-PCS; principal; 2020-10-27)
DX: S72.011A Unspecified intracapsular fracture of right femur, initial encounter for closed fracture (principal); D62 Acute posthemorrhagic anemia; W01.0XXA Fall on same level from slipping, tripping and stumbling without subsequent striking against object, initial encounter; J44.9 Chronic obstructive pulmonary disease, unspecified; Z20.822 Contact with and (suspected) exposure to COVID-19; Z53.9 Procedure and treatment not carried out, unspecified reason; Z79.899 Other long term (current) drug therapy; Z87.891 Personal history of nicotine dependence; I50.9 Heart failure, unspecified; I11.0 Hypertensive heart disease with heart failure; E87.6 Hypokalemia; D72.829 Elevated white blood cell count, unspecified
CPT/HCPCS: 71045; 73502; 80048; 80053; 81001; 83735; 84132; 85025; 85027; 85610; 86850; 86900; 86901; 87635; 88305; 88311; 94640; 96360; 99284

== ENCOUNTER 2022-05-17 19:37 | Inpatient (IN) | payer MEDICARE, OTHER ==
[2022-05-17] MEDS ORDERED: NALOXONE 0.4 MG/ML 1 ML VIAL IV PRN (20:55)
--- NOTE | 2022-05-17 20:55 | ED ---
Fall HPI - General Chief Complaint: Fall Stated Complaint: Left leg injury Time Seen by Provider: 05/17/22 20:00 Source: patient, family, EMS, RN notes reviewed Mode of arrival: EMS Limitations: physical limitation - History of Present Illness Initial Comments: 81-year-old male presents emergency Department from [place] as a transfer with chief complaint of left hip fracture. Patient probably fell outside today on the porch. Patient states his pain is controlled. Now had CMP medication at [place]. Patient states he's had his right hip replacement by Dr. Hodges 2 years ago. Patient denies any other significant injuries he didn't strike his head and which she has CT of his head and neck which was negative, abrasions noted. Patient had otherwise full workup at outside facility. - Related Data Home Medications Medication Instructions Recorded Confirmed Budesonide [Pulmicort] 0.5 mg INHALATION RT-BID PRN 10/22/20 10/22/20 Fluticasone Nasal [place] [Flonase 2 spr EA NOSTRIL DAILY PRN 10/22/20 10/22/20 Nasal [place]] Furosemide [Lasix] 20 - 40 mg PO DAILY PRN 10/22/20 10/22/20 Ipratropium-Albuterol Nebulize 3 ml INHALATION RT-QID PRN 10/22/20 10/22/20 [Duoneb 0.5 mg-3 mg/3 ml Soln] Metoprolol Tartrate [Lopressor] 12.5 mg PO BID 10/22/20 10/22/20 Potassium Chloride ER [K-Dur 10] 10 meq PO DAILY 10/22/20 10/22/20 Tamsulosin [Flomax] 0.4 mg PO DAILY 10/22/20 10/22/20 lisinopriL [Zestril] 10 mg PO DAILY 10/22/20 10/22/20 Previous Rx's Medication Instructions Recorded Aspirin 325 mg PO DAILY #30 tab 10/27/20 Docusate [Colace] 100 mg PO DAILY #30 cap 10/27/20 Ferrous Sulfate [Iron (65 MG 325 mg PO BID #40 tab 10/27/20 Elemental)] HYDROcodone/APAP 5-325MG [Naylor 1 tab PO Q6HR PRN 3 Days #28 tab 10/27/20 5-325] Allergies Allergy/AdvReac Type Severity Reaction Status Date / Time No Known Allergies Allergy Verified 10/22/20 19:44 Review of Systems ROS Statement: Those systems with pertinent positive or pertinent negative responses have been documented in the HPI. ROS Other: All systems not noted in ROS Statement are negative. Past Medical History Past Medical History: Asthma, Heart Failure, COPD, Hypertension Additional Past Medical History / Comment(s): tachycardia History of Any Multi-Drug Resistant Organisms: None Reported Past Surgical History: No Surgical Hx Reported Past Anesthesia/Blood Transfusion Reactions: No Reported Reaction Past Psychological History: No Psychological Hx Reported Smoking Status: Former smoker, Vaper Past Alcohol Use History: None Reported Past Drug Use History: None Reported - Past Family History family Family Medical History: No Reported History General Exam Limitations: no limitations General appearance: alert, in no apparent distress Head exam: Present: atraumatic, normocephalic, normal inspection Eye exam: Present: normal appearance, PERRL, EOMI. Absent: scleral icterus, conjunctival injection, periorbital swelling ENT exam: Present: normal exam, mucous membranes moist Neck exam: Present: normal inspection, full ROM. Absent: tenderness, meningismus, lymphadenopathy Respiratory exam: Present: normal lung sounds bilaterally. Absent: respiratory distress, wheezes, rales, rhonchi, stridor Cardiovascular Exam: Present: normal rhythm, tachycardia, normal heart sounds. Absent: systolic murmur, diastolic murmur, rubs, gallop, clicks Extremities exam: Present: other (Tenderness to left hip, neurovascular intact) Course Vital Signs 05/17/22 19:44 Temperature 98.4 F Pulse Rate 122 H Respiratory 20 Rate Blood Pressure 154/93 O2 Sat by Pulse 96 Oximetry Medical Decision Making - Medical Decision Making Was pt. sent in by a medical professional or institution (, PA, [employer], urgent care, hospital, or correction...) When possible be specific @ -No Did you speak to anyone other than the patient for history (EMS, parent, family, police, friend...)? What history was obtained from this source @ -No Did you review nursing and triage notes (agree or disagree)? Why? @ -I reviewed and agree with nursing and triage notes Were old charts reviewed (outside hosp., previous admission, EMS record, old EKG, old radiological studies, urgent care reports/EKG's, correction records)? Report findings @ -No old charts were reviewed Differential Diagnosis (chest pain, altered mental status, abdominal pain women, abdominal pain men, vaginal bleeding, weakness, fever, dyspnea, syncope, headache, dizziness, GI bleed, back pain, seizure, CVA, palpatations, mental health, musculoskeletal)? @ -Hip fracture EKG interpreted by me (3pts min.). @ -See outside EKG X-rays interpreted by me (1pt min.). @ -None done CT interpreted by me (1pt min.). @ -None done U/S interpreted by me (1pt. min.). @ -None done What testing was considered but not performed or refused? (CT, X-rays, U/S, labs)? Why? @ -None What meds were considered but not given or refused? Why? @ -None Did you discuss the management of the patient with other professionals (professionals i.e. , PA, [employer], lab, RT, psych nurse, public health social worker, beeswax bleacher, teacher, project officer, telehealth case manager)? Give summary @ -I did page Dr. Gong on-call for advanced orthopedics, Hi is a case was patient will be admitted to Dr. Hodges Was smoking cessation discussed for >3mins.? @ -No Was critical care preformed (if so, how long)? @ -No Were there social determinants of health that impacted care today? How? (Homelessness, low income, unemployed, alcoholism, drug addiction, transportation, low edu. Level, literacy, decrease access to med. care, intermediate, rehab)? @ -No Was there de-escalation of care discussed even if they declined (Discuss DNR or withdrawal of care, Hospice)? DNR status @ -No What co-morbidities impacted this encounter? (DM, HTN, Smoking, COPD, CAD, Cancer, CVA, ARF, Chemo, Hep., AIDS, mental health diagnosis, sleep apnea, morbid obesity)? @ -None Was patient admitted / discharged? Hospital course, mention meds given and route, prescriptions, significant lab abnormalities, going to OR and other pertinent info. @ -Admitted for left femoral neck fracture. Undiagnosed new problem with uncertain prognosis? @ -No Drug Therapy requiring intensive monitoring for toxicity (Heparin, Nitro, Insulin, Cardizem)? @ -No Were any procedures done? @ -No Diagnosis/symptom? @ -Left femoral neck fracture Acute, or Chronic, or Acute on Chronic? @ -Acute Uncomplicated (without systemic symptoms) or Complicated (systemic symptoms)? @ -Uncomplicated Side effects of treatment? @ -No Exacerbation, Progression, or Severe Exacerbation? @ -No Poses a threat to life or bodily function? How? (Chest pain, USA, PR, pneumonia, PE, COPD, DKA, ARF, appy, cholecystitis, CVA, Diverticulitis, Homicidal, Suicidal, threat to staff... and all critical care pts) @ -No Disposition Clinical Impression: Fall, Hip fracture, left Disposition: ADMITTED IP TO THIS HOSP Condition: Fair Referrals: Kt Wolf MD [Primary Care Provider] - 1-2 days Time of Disposition: 20:54
[2022-05-17] MEDS: HYDROmorphone 0.5 MG/0.5 ML SYRINGE IVP PRN (21:29)
[2022-05-17] MEDS: IPRATROPIUM-ALBUTEROL 3 ML NEB INHALATION SCH (22:19)
[2022-05-17] MEDS: BUDESONIDE 0.5 MG/2 ML NEBU INHALATION PRN (22:19)
--- NOTE | 2022-05-17 22:24 | XR ---
EXAMINATION TYPE: XR Hip Complete LT DATE OF EXAM: 05/17/2022 CLINICAL HISTORY: pain TECHNIQUE: AP and frogleg views of the left hip are obtained. COMPARISON: None. FINDINGS: Left femoral neck fracture noted. No additional fracture seen. Mild degenerative narrowing left hip joint space. The joint space appears within normal limits. The overlying soft tissue appea rs unremarkable. IMPRESSION: 1. Left femoral neck fracture
[2022-05-18] MEDS: HYDROmorphone 0.5 MG/0.5 ML SYRINGE IVP PRN (02:40)
--- NOTE | 2022-05-18 07:57 | P.HPOR ---
History of Present Illness H&P Date: 05/18/22 Chief Complaint: Left femoral neck fracture Patient is an 81-year-old male who was transferred from [facility] for evaluation of left lower extremity injury. Apparently the patient fell at home on his deck. He was utilizing a cane or walker at that time. Patient was initially evaluated at [facility] were multiple imaging and lab tests were done. Images demonstrated a left femoral neck fracture. Patient had a previous right femoral neck fracture, he underwent a hemiarthroplasty of the right hip by Dr. Hodges at this facility back in 2020. We were contacted by the emergency room staff Sasha Clifford regarding the possible transfer, we did except. Patient was admitted under our orthopedic care with plan for surgical intervention, internal medicine was placed on for medical management. She was evaluated today at bedside, he remains with an nothing by mouth diet since midnight. He is resting comfortably. He notes pain in the left lower extremity with movement. He denies any pain of the right lower extremity, bilateral upper extremities. He states he may have hit his head during the fall but he has no headaches, lightheadedness, changes in vision. He denies any loss of bowel or bladder function at this time. He denies any numbness or tingling in the bilateral upper or lower extremities. Review of Systems Constitutional: Reports as per HPI Past Medical History Past Medical History: Asthma, Heart Failure, COPD, Hypertension Additional Past Medical History / Comment(s): tachycardia History of Any Multi-Drug Resistant Organisms: None Reported Past Surgical History: No Surgical Hx Reported Past Anesthesia/Blood Transfusion Reactions: No Reported Reaction Past Psychological History: No Psychological Hx Reported Smoking Status: Former smoker, Vaper Past Alcohol Use History: None Reported Past Drug Use History: None Reported - Past Family History family Family Medical History: No Reported History Medications and Allergies Home Medications Medication Instructions Recorded Confirmed Type Budesonide [Pulmicort] 0.5 mg INHALATION RT-BID 10/22/20 05/17/22 History Fluticasone Nasal [place] [Flonase 2 spr EA NOSTRIL DAILY 10/22/20 05/17/22 History Nasal [place]] Ipratropium-Albuterol Nebulize 3 ml INHALATION RT-QID 10/22/20 05/17/22 History [Duoneb 0.5 mg-3 mg/3 ml Soln] Metoprolol Tartrate [Lopressor] 12.5 mg PO BID 10/22/20 05/17/22 History Tamsulosin [Flomax] 0.4 mg PO HS 10/22/20 05/17/22 History lisinopriL [Zestril] 10 mg PO DAILY 10/22/20 05/17/22 History Aspirin EC [Ecotrin Low Dose] 81 mg PO DAILY 05/17/22 05/17/22 History Ferrous Sulfate [Iron (65 MG 325 mg PO DAILY 05/17/22 05/17/22 History Elemental)] Finasteride [Proscar] 5 mg PO DAILY 05/17/22 05/17/22 History Ipratropium/Albuter 20-100Mcg 1 puff INHALATION RT-BID PRN 05/17/22 05/17/22 History [Combivent Respimat 20-100Mcg Inhaler] Multivitamins, Thera [Multivitamin 1 tab PO HS 05/17/22 05/17/22 History (formulary)] Potassium Chloride ER [K-Dur 20] 20 meq PO DAILY 05/17/22 05/17/22 History Allergies Allergy/AdvReac Type Severity Reaction Status Date / Time No Known Allergies Allergy Verified 05/17/22 21:47 Physical Examination Left lower extremity: No obvious open lesions or sores are visualized throughout the extremity Shortening and external rotation of the left lower extremity is noted compared to the contralateral side Logroll maneuver reproduces pain, he is unable to straight leg raise. He does demonstrate tenderness with palpation of the proximal femur No tenderness with palpation to the knee, there is no effusion present. Full passive flexion and extension are intact at the knee, this does reproduce pain in the groin. Calf is soft, no tenderness with palpation Plantar flexion, dorsiflexion, EHL, FHL are intact Sensory exam to light touch is intact throughout the extremity, dorsalis pedis pulses 2+ Results - Diagnostic results Hip x-ray: report reviewed, image reviewed ([facility] of the left hip [facility] to [facility]. Images demonstrate a displaced left subcapital femur fracture.) Assessment and Plan Assessment: Displaced left subcapital femur fracture Status post fall from standing Other medical comorbidities Plan: I was able to discuss the case, this including no physical exam findings and imaging studies my attending Dr. Hodges. Patient was admitted under our orthopedic care plan for surgical intervention. We would like to proceed with a left hip hemiarthroplasty on 05/18/2022 Risk and benefits of the procedure were discussed the patient today at bedside, this to include but not limited infection, blood loss, neurovascular injury, development of blood clots, and adequate healing of bone, possible need for further surgery. Patient is in good understanding would like to proceed. Obtain consent prior to procedure Continue nothing by mouth diet at this time Continue nonweightbearing status at this time DVT prophylaxis, will utilize subcu medication after surgery PT/OT evaluation after surgery Medical recommendations Further recommendations to follow Time with Patient: Less than 30
[2022-05-18] MEDS: IPRATROPIUM-ALBUTEROL 3 ML NEB INHALATION SCH ×4 (08:36→20:15)
[2022-05-18] MEDS: lisinopriL 10 MG TAB PO SCH (09:30)
[2022-05-18] MEDS ORDERED: IPRATROPIUM-ALBUTEROL 3 ML NEB INHALATION PRN (09:41)
[2022-05-18] MEDS: METOPROLOL TARTRATE 12.5 MG TAB PO SCH ×2 (10:50→20:54)
--- NOTE | 2022-05-18 11:34 | P.PN ---
Progress Note - Text Progress Note Date: 05/18/22 Orthopedic Surgery Risk Review Anil Pérez is a 81 yo male presenting for evaluation of sudden onset L hip pain, inability to ambulate after fall from standing at home. It was my pleasure to have seen and examined Anil Pérez. In our visit today we have had a chance to go over subjective complaints, physical examination findings and treatments including the natural course history without intervention and various interventional options. HIs imaging demonstrates Left femoral neck fracture, complete displaced. On physical exam, Anil Pérez demonstrates pain with motion of L hip, which is NV intact at this time. I have explained to the patient that this fracture needs stabilization. Based on the patients imaging, physical exam, and the rapid progression and disabling nature of her symptoms, at this time I recommend surgery in the form or a: LEFT hip hemiarthroplasty I discussed the risk and benefits of this procedure at length with Anil Pérez. Questions were invited and answered, and the patient wishes to proceed as outlined below. Currently, I am recommendin. Left Hip hemiarthroplasty 2. Review of surgical risks and benefits as well as an educational packet on the proposed surgical procedure. Risks: All surgical procedures come with inherent risks, including those related to po sitioning, anesthesia, intraoperative findings, and postoperative complications. It is important to understand that surgery does not come with any guarantee of a successful outcome as complications and adverse events are always possible. The patient was given a handout discussing the surgical procedure and risks associated with the intervention, both of which were discussed with the patient. These risks include but are not limited to the following: - Experiencing same, different or even worse symptoms compared to before surgery. - Requiring further surgery or other forms of treatment presently or at some time in the future . - On an extreme but fortunately relatively rare basis severe complication such as blindness, stroke, heart attack, temporary and/or permanent nerve injury, paralysis, coma, or may occur, sometimes without known explanation. - Surgical complications may include but are not limited to risk of infection, fluid accumulation in the surgical dissection site, including a seroma or hematoma, that requires additional surgery, wound drainage, bleeding, new numbness or weakness, vision changes/loss, spinal fluid leakage, non-healing and/or infected incision, headaches, difficulty or inability to swallow, hoarseness, hemopneumothorax, pneumothorax, injury to nerves, spinal cord, blood vessels, lymphatics or other vital organs (i.e., bowel injury, injury to the great vessels); heterotopic bone formation; complications related to the hardware such as screws, rods, including misplaced hardware, device failure, hardware fracture/breakage, or hardware loosening; retained surgical instrumentations or devices and the need for further surgery. - Medical risks of the planned surgery include but are not limited to ge neralized Infections to the whole body or local areas outside of the surgical site (sepsis), heart attack, bleeding, anaphylaxis, meningitis, seizure, epilepsy, hearing loss, burn warren, laceration of the head or other areas of the body, bruising, hypersensitivity of the skin, bladder over distension; allergic reaction; shoulder injury related to positioning; fat, blood and air clots to other areas of the body like heart, lungs, brain; failure of internal organs such as lungs, kidneys, liver and excessive bleeding. If blood transfusions are necessary, note that transfusions may cause intolerance reactions such as anaphylaxis or other complex reactions. Despite best efforts, the results of surgery might not heal in terms of bone, soft tissues such as skin, fascia, ligaments, and joints. [facility] has multiple operating rooms with single and overlapping rooms running daily. They currently function under the required guidelines as produced by the [facility] Finance Committee with regards to the overlapping rooms and will continue to comply with changes to this policy as they occur. The requirements include and are complied with as follows: (1) the critical portions of the overlapping rooms will not occur at the same time, (2) the attending physician will be physically present during the critical portions of the procedure and immediately available during the entire case, and (3) a back-up attending is designated should the primary attending not be immediately available. The patient has had a chance to review all the listed information, has been given print outs detailing this information, and has had all his/her questions answered to their satisfaction. It was my pleasure to have seen and examined Anil Pérez. In our visit today we have had a chance to go over my understanding of our patient's current condition, the natural course history without intervention and various interventional options. Questions were invited and answered, and the patient wishes to proceed as outlined above. I have seen and examined the patient for 25 minutes and we have spent more than 50% of the time in repeat and detailed counseling about the patient's condition, its natural course history with out and as much as can be predicted with surgery and re-review of various surgical treatment options. In conclusion, Anil Pérez requested we proceed with the above suggested surgery and are willing to accept risks and limitations of the suggested surgery as nature of the disease process and our best attempts at treatment for the condition. Thank you again for allowing us to be part of your patient's care. Please don't hesitate to contact me if you have any further questions. Signed and authenticated by: Panfilo May [facility] [address] [address]
--- NOTE | 2022-05-18 12:40 | P.CONS ---
History of Present Illness - Reason for Consult Consult date: 05/18/22 Medical evaluation for left hip fracture repair - Chief Complaint Status post fall - History of Present Illness 81-year-old gentleman with past medical history significant for COPD hypertension asthma questionable history of CHF no echo on 5 presents after a fall. Patient was noted to have left femoral neck fracture patient was transferred here for surgical evaluation Preoperatively chart reviewed, vitals reviewed patient was noted to have tachycardia given metoprolol his home medication likely secondary to pain patient remains on room air At this time patient to proceed with surgery denies of any issues however poor historian No lab work available at this time however we'll follow-up on a CBC and a basic metabolic panel Review of Systems REVIEW OF SYSTEMS: Essentially negative except for left hip pain CONSTITUTIONAL: No fever, no malaise, no fatigue. HEENT: No recent visual problems or hearing problems. Denied any sore throat. CARDIOVASCULAR: No chest pain, orthopnea, PND, no palpitations, no syncope. PULMONARY: No shortness of breath, no cough, no hemoptysis. GASTROINTESTINAL: No diarrhea, no nausea, no vomiting, no abdominal pain. NEUROLOGICAL: No headaches, no weakness, no numbness. HEMATOLOGICAL: Denies any bleeding or petechiae. GENITOURINARY: Denies any burning micturition, frequency, or urgency. MUSCULOSKELETAL/RHEUMATOLOGICAL: Denies any joint pain, swelling, or any muscle pain. ENDOCRINE: Denies any polyuria or polydipsia. Past Medical History Past Medical History: Asthma, Heart Failure, COPD, Hypertension Additional Past Medical History / Comment(s): tachycardia History of Any Multi-Drug Resistant Organisms: None Reported Past Surgical History: No Surgical Hx Reported Past Anesthesia/Blood Transfusion Reactions: No Reported Reaction Past Psychological History: No Psychological Hx Reported Smoking Status: Former smoker, Vaper Past Alcohol Use History: None Reported Past Drug Use History: None Reported - Past Family History family Family Medical History: No Reported History Medications and Allergies Home Medications Medication Instructions Recorded Confirmed Type Budesonide [Pulmicort] 0.5 mg INHALATION RT-BID 10/22/20 05/17/22 History Fluticasone Nasal [place] [Flonase 2 spr EA NOSTRIL DAILY 10/22/20 05/17/22 History Nasal [place]] Ipratropium-Albuterol Nebulize 3 ml INHALATION RT-QID 10/22/20 05/17/22 History [Duoneb 0.5 mg-3 mg/3 ml Soln] Metoprolol Tartrate [Lopressor] 12.5 mg PO BID 10/22/20 05/17/22 History Tamsulosin [Flomax] 0.4 mg PO HS 10/22/20 05/17/22 History lisinopriL [Zestril] 10 mg PO DAILY 10/22/20 05/17/22 History Aspirin EC [Ecotrin Low Dose] 81 mg PO DAILY 05/17/22 05/17/22 History Ferrous Sulfate [Iron (65 MG 325 mg PO DAILY 05/17/22 05/17/22 History Elemental)] Finasteride [Proscar] 5 mg PO DAILY 05/17/22 05/17/22 History Ipratropium/Albuter 20-100Mcg 1 puff INHALATION RT-BID PRN 05/17/22 05/17/22 History [Combivent Respimat 20-100Mcg Inhaler] Multivitamins, Thera [Multivitamin 1 tab PO HS 05/17/22 05/17/22 History (formulary)] Potassium Chloride ER [K-Dur 20] 20 meq PO DAILY 05/17/22 05/17/22 History Allergies Allergy/AdvReac Type Severity Reaction Status Date / Time No Known Allergies Allergy Verified 05/17/22 21:47 Physical Exam Vitals: Vital Signs Temp Pulse Pulse Resp BP BP Pulse Ox 05/18/22 11:45 112 H 05/18/22 11:36 111 H 05/18/22 10:16 114 H 05/18/22 08:50 118 H 05/18/22 08:39 114 H 92 L 05/18/22 08:00 98.6 F 114 H 16 133/82 92 L 05/18/22 02:00 99.1 F 108 H 16 134/71 96 05/17/22 23:20 16 05/17/22 23:12 99.3 F 121 H 16 129/67 93 L 05/17/22 22:40 121 H 05/17/22 22:19 121 H 05/17/22 19:44 98.4 F 122 H 20 154/93 96 FiO2 05/18/22 11:45 05/18/22 11:36 05/18/22 10:16 05/18/22 08:50 05/18/22 08:39 21 05/18/22 08:00 05/18/22 02:00 05/17/22 23:20 05/17/22 23:12 05/17/22 22:40 05/17/22 22:19 05/17/22 19:44 Intake and Output 05/17/22 05/18/22 05/18/22 22:59 06:59 14:59 Intake Total 590 Output Total 300 450 Balance 290 -450 Intake: Oral 590 Output: Urine 300 450 Other: Voiding Method Urinal Weight 69.4 kg 69.4 kg PHYSICAL EXAMINATION: Vital reviewed GENERAL: The patient is alert and oriented x3, not in any acute distress. Well developed HEENT: Pupils are round and equally reacting to light. EOMI. No scleral icterus. No conjunctival pallor. Normocephalic, atraumatic. No pharyngeal erythema. CARDIOVASCULAR: S1 and S2 present. Tachycardia noted PULMONARY: Chest is clear to auscultation, no wheezing or Ronchi ABDOMEN: Soft, nontender, nondistended, normoactive bowel sounds. No palpable organomegaly. MUSCULOSKELETAL: No joint swelling or deformity. EXTREMITIES: Left hip tender on palpation NEUROLOGICAL: Gross neurological examination did not reveal any focal deficits. SKIN: No rashes. Assessment and Plan Assessment: Assessment and plan * Status post fall left hip fracture * Preoperative medical clearance for hip fracture repair * Hypertension * History of asthma per chart review * History of CHF per chart review * Okay to proceed with surgery at this point, patient continues to remain moderate distress secondary to age and medical comorbidities however benefit of surgery more than risk * will get a CBC and basic metabolic panel ordered * Continue patient on metoprolol * Continue to monitor intake and output, caution with fluid status no other: Father for history of CHF * Orthopedic team following and primary * Post procedure patient was placed on DVT prophylaxis per orthopedic discretion Time with Patient: Less than 30
[2022-05-18 13:23] LABS: HGB 13.5 gm/dL (13.0-17.5); MCH 27.4 pg (25.0-35.0); MCHC 32.9 g/dL (31.0-37.0); MCV 83.4 fL (80.0-100.0); Mean Platelet Volume 6.8; Platelet Count 164 k/uL (150-450); RBC 4.92 m/uL (4.30-5.90); RDW 13.7 % (11.5-15.5); WBC 10.2 k/uL (3.8-10.6)
[2022-05-18 13:54] LABS: African American GFR (CKD) >90 (>60 ml/min/1.73 sqM); Anion Gap 7 mmol/L; Blood Urea Nitrogen 15 mg/dL (9-20); Calcium 8.8 mg/dL (8.4-10.2); Carbon Dioxide 22 mmol/L (22-30); Chloride 107 mmol/L (98-107); Glucose 108 mg/dL (74-99); Non-African American GFR(CKD) 78 (>60 ml/min/1.73 sqM); Potassium 4.6 mmol/L (3.5-5.1); Sodium 136 mmol/L (137-145)
[2022-05-18] MEDS: FLUTICASONE 50MCG/SPRAY NASAL 16GM EA NOSTRIL SCH (14:06)
[2022-05-18] MEDS ORDERED: LACTATED RINGERS 1,000 ML IV ONE (14:54)
[2022-05-18] MEDS: ONDANSETRON 4 MG/2 ML VIAL IVP PRN (15:09)
[2022-05-18] MEDS ORDERED: diphenhydrAMINE 50 MG/ML 1 ML VIAL ONE (15:37)
[2022-05-18] MEDS ORDERED: MIDAZOLAM 2 MG/2 ML VIAL ONE (15:37)
[2022-05-18] MEDS ORDERED: KETAMINE 10 MG/ML 20 ML VIAL ONE (15:37)
[2022-05-18] MEDS ORDERED: fentaNYL (PF) 50 MCG/ML 2 ML AMP ONE (15:37)
[2022-05-18] MEDS ORDERED: PHENYLEPHRINE-0.9% NACL SYG 1,000 MCG/10 ML SYRINGE ONE (15:37)
[2022-05-18] MEDS ORDERED: SODIUM CHLORIDE 0.9% 100 ML with ceFAZolin 2,000 MG IV ONE ×2 (15:41)
[2022-05-18] MEDS ORDERED: ACETAMINOPHEN TAB 325 MG TAB PO PRN (17:23)
[2022-05-18] MEDS ORDERED: HYDROcodone/APAP 7.5-325MG 1 EACH TAB PO PRN (17:23)
[2022-05-18] MEDS ORDERED: MAGNESIUM HYDROXIDE 2,400 MG/10 ML CUP PO PRN (17:23)
--- NOTE | 2022-05-18 18:03 | XR ---
EXAMINATION TYPE: XR Hip Limited LT DATE OF EXAM: 05/18/2022 5:49 PM INDICATION: Patient age:Male; 81 years old; Reason for study: s/p hip surgery; COMPARISON: 05/17/2022 TECHNIQUE: The left hip was examined in the frontal and lateral projections and a AP pelvis. FINDINGS: Post arthroplasty changes, hardware is intact, alignment is appropriate. No evidence of fra cture. Postoperative changes of the soft tissues with subcutaneous gas. No evidence of any acute osse ous pathology or joint dislocation. IMPRESSION: Left hip arthroplasty with hardware intact and in appropriate alignment. No acute fracture.
[2022-05-18] MEDS: TAMSULOSIN 0.4 MG CAP.ER.24H PO SCH (20:54)
[2022-05-18] MEDS: SENNOSIDES-DOCUSATE SODIUM 1 EACH TAB PO SCH (20:54)
[2022-05-18] MEDS: HYDROcodone/APAP 5-325MG 1 EACH TAB PO PRN (21:00)
[2022-05-19] MEDS: ONDANSETRON 4 MG/2 ML VIAL IVP PRN (03:45)
--- NOTE | 2022-05-19 07:08 | P.OP ---
Date of Procedure: 05/18/22 Preoperative Diagnosis: 1. Left femoral neck fracture, complete displaced 2. s/p FFS Postoperative Diagnosis: 1. Left femoral neck fracture, complete displaced 2. s/p FFS Procedure(s) Performed: 1. Left hip hemiarthroplasty (05184) Implants: [employer] Polar stem F: 7 52 acetab bipolar 28 inner head 0 Anesthesia: spinal Surgeon: Panfilo Hodges Gasoline Attendant #1: Kannan Veliz (Was present and assisted with all aspects of the case from positioning to closure) Estimated Blood Loss (ml): 50 IV fluids (ml): 250 Urine output (ml): 0 Pathology: none sent Condition: stable Disposition: PACU Indications for Procedure: Anil Pérez is a 81 yo male presenting for evaluation of sudden onset L hip pain, inability to ambulate after fall from standing at home. It was my pleasure to have seen and examined Anil Pérez. In our visit today we have had a chance to go over subjective complaints, physical examination findings and treatments including the natural course history without intervention and various interventional options. HIs imaging demonstrates Left femoral neck fracture, complete displaced. On physical exam, Anil Pérez demonstrates pain with motion of L hip, which is NV intact at this time. I have explained to the patient that this fracture needs stabilization. Based on the patients imaging, physical exam, and the rapid progression and disabling nature of her symptoms, at this time I recommend surgery in the form or a: LEFT hip hemiarthroplasty I discussed the risk and benefits of this procedure at length with Anil Pérez. Questions were invited and answered, and the patient wishes to proceed as outlined below. Currently, I am recommendin. Left Hip hemiarthroplasty Description of Procedure: Left Hip Hemiarthroplasty The patient was seen and examined in the preoperative area. All preoperative protocols were followed. Informed consent was obtained risks and benefits of the procedure were discussed at length. Risks including bleeding infection damage to the surrounding tissue and risk of reoperation were discussed with the patient. Risk of anesthesia up to and including was a discussed with the patient. These are outlined in the risk reviewed. They were willing to accept these risks and all of the risks of surgery. The patient was given a weight- based dose of antibiotics in the form of 2 g Ancef. The patient was seen and evaluated by the anesthesia team who deemed them fit for surgery. The site was marked, the patient was willing to proceed with the procedure. The patient was transferred to the operative suite by the Department of anesthesia. There were then drifted off to sleep by the department of anesthesia and spinal anesthesia was used. Once adequate anesthesia had been obtained the patient was carefully transferred to the operative bed and placed in the lateral decubitus position secured with posts with an axillary role and appropiate padding. All bony prominences were padded accordingly. SCDs were placed on the nonoperative lower extremities. Arms were well padded. The Left leg was exposed and 1015 placed around the site. Preoperative briefing was done with the operative team and everyone was ready for the procedure to start. The patients right leg was then prepped and draped in the normal sterile fashion. Timeout was then performed and all parties in agreement with the procedure to be performed. Standard incision was marked for posterior approach to the hip. Skin incision made and dissection taken down to the TFL which was identified and split with its fibers. Charnley retractor placed and bursa identified along with vastus insertion and gluteus medius. Medius was protected and posterior short external rotators along with capsule and piriformus which was tagged, identified and released. Capsulotomy in an L shape was performed along the superior neck which allowed for dislocation of the fractured stump. Shoulder was palpated along with Lesser trochanter and clean up cut made 1 cm superior to the LT. Once this was done retractors placed and the head was removed with a cork srew and T handle. Once removed it was sized and a trial head was placed and had good suction fit. Attention was then turned to femoral preparation. Box osteotome was used to enter followed by canal finder and lateralizer. Rat tail then used to widen this. Sequential broaching was then performed until the desired size and fit. Once this was achieved a head and neck combo was trialed. Once reduced the hit was taken through a range of motion and was stable in all positions, had good motion and leg lengths were equal. The hip was then atraumatially dislocated and the braoch checked, it was stable and so final sizes selected. The wound, acetabulum and femoral canal were then irrigated copiously with pulse lavage and NSS. Canal and acetabulum inspected and were appropriate. Final implants were then confirmed and femoral stem impacted into position and was stable. Bipolar head combo was then assembled and placed and i mpacted into position and tested and was stable. The hip was then reduced and taken through a ROM again and was stable and had good length. The wound was again irrigated. Posterior capsule was then stitched with ethibond suture and passed through three drill holes made in the posterior GT. These were then tightened and tied. The capsule was then oversewn with an ethibond stitch for tight closure. ROM showed good tension and good closure. Charnley removed and TFL repaired with #1 vicryl in running locking fashion. Deep subq closed with 0 Vicryl, Superficial with 2-0 vicryl and skin with gage. Wound edges approximated well. The wound was then cleaned and dressed sterrilly with Optifoam dressing. The patient was then transferred back to their hospital bed. There were awakene d by department of anesthesia having tolerated the procedure very well with no complications. Hip abduction pillow placed. The patient was then transported to the postoperative care unit in stable condition.
[2022-05-19 07:45] LABS: Basophils % (A) 0 %; Eosinophils % (A) 0 %; HCT 39.5 % (39.0-53.0); HGB 13.1 gm/dL (13.0-17.5); Lymphocytes # (A) 0.7 k/uL (1.0-4.8); Lymphocytes % (A) 5 %; MCH 27.9 pg (25.0-35.0); MCHC 33.2 g/dL (31.0-37.0); Mean Platelet Volume 8.4; Monocytes % (A) 7 %; Neutrophils # (A) 12.9 k/uL (1.3-7.7); Neutrophils % (A) 87 %; Platelet Count 188 k/uL (150-450); RDW 13.8 % (11.5-15.5); WBC 14.7 k/uL (3.8-10.6)
[2022-05-19 07:48] LABS: African American GFR (CKD) 61 (>60 ml/min/1.73 sqM); Anion Gap 13 mmol/L; Blood Urea Nitrogen 27 mg/dL (9-20); Calcium 8.7 mg/dL (8.4-10.2); Carbon Dioxide 22 mmol/L (22-30); Chloride 103 mmol/L (98-107); Glucose 120 mg/dL (74-99); Non-African American GFR(CKD) 53 (>60 ml/min/1.73 sqM); Potassium 4.8 mmol/L (3.5-5.1); Sodium 138 mmol/L (137-145)
[2022-05-19] MEDS: IPRATROPIUM-ALBUTEROL 3 ML NEB INHALATION SCH ×4 (08:23→20:20)
[2022-05-19] MEDS ORDERED: SODIUM CHLORIDE 0.9% 1,000 ML IV ONE (09:08)
[2022-05-19] MEDS: METOPROLOL TARTRATE 12.5 MG TAB PO SCH ×2 (09:17→20:00)
[2022-05-19] MEDS: FERROUS SULFATE 325 MG TAB PO SCH (09:47)
[2022-05-19] MEDS: FLUTICASONE 50MCG/SPRAY NASAL 16GM EA NOSTRIL SCH (09:47)
[2022-05-19] MEDS: FINASTERIDE 5 MG TAB PO SCH (09:47)
[2022-05-19] MEDS: ENOXAPARIN 40 MG/0.4 ML SYRINGE SQ SCH (09:48)
--- NOTE | 2022-05-19 09:53 | P.PN ---
Subjective Progress Note Date: 05/19/22 Principal diagnosis: Status post left hip hemiarthroplasty Patient was evaluated today at bedside, he is resting in his hospital bed. Physical therapy was present today at bedside, they did give him up to the chair. Patient's blood pressure and O2 sats did decrease significantly. A fluid bolus was immediately ordered, I did evaluate the patient a few minutes after receiving some of the fluid and he seemed to be alert and oriented. He notes minimal discomfort in the left lower extremity at this time. Objective - Vital Signs Vital signs: Vital Signs Temp 98.9 F 05/19/22 08:00 Pulse 117 H 05/19/22 09:28 Resp 18 05/19/22 08:00 BP 93/57 05/19/22 09:28 Pulse Ox 94 L 05/19/22 08:26 FiO2 21 05/18/22 17:45 Intake & Output 05/18/22 05/19/22 05/19/22 18:59 06:59 18:59 Intake Total 850 Output Total 650 150 Balance 200 -150 Weight 69.4 kg Intake: IV 850 Output: Urine 450 150 Estimated Blood Loss 200 Other: Voiding Method Urinal Urinal # Voids 2 - Exam Left lower extremity: Incision is clean, dry, and intact. The foam dressing is in good condition. There is minimal soft tissue swelling and ecchymosis surrounding the medial and lateral aspects of the incision. Calf is soft, no tenderness with palpation. Plantar flexion, dorsiflexion, EHL, FHL are intact. Sensory exam to light touch throughout the extremity is intact, dorsal pedis pulses 2+. - Labs CBC & Chem 7: 05/19/22 05:53 05/19/22 05:53 Labs: Abnormal Lab Results - Last 24 Hours (Table) 05/18/22 05/19/22 05/19/22 Range/Units 13:10 05:53 05:53 WBC 14.7 H (3.8-10.6) k/uL Neutrophils # 12.9 H (1.3-7.7) k/uL Lymphocytes # 0.7 L (1.0-4.8) k/uL Sodium 136 L (137-145) mmol/L BUN 27 H (9-20) mg/dL Creatinine 1.26 H (0.66-1.25) mg/dL Glucose 108 H 120 H (74-99) mg/dL Assessment and Plan Assessment: Postoperative day #1 status post left hip hemiarthroplasty Status post fall from standing Other medical comorbidities Plan: Continue IV fluids at this time Pain control, continue low-dose with pain medication as needed DVT prophylaxis, continue subcu medication PT/OT evaluation after surgery Medical recommendations Discharge planning: Anticipate discharge to subacute rehab in the next 2448 hours Time with Patient: Less than 30
[2022-05-19] MEDS: lisinopriL 10 MG TAB PO SCH (10:46)
[2022-05-19] MEDS: SODIUM CHLORIDE 0.9% 1,000 ML IV SCH (10:47)
--- NOTE | 2022-05-19 14:51 | P.PN ---
Subjective Progress Note Date: 05/19/22 Principal diagnosis: Status post fall hip fracture SUBJECTIVE : Patient seen and evaluated bedside, patient does complain of left hip pain, blood pressure was noted to be low hence antihypertensive medication held. REVIEW OF SYSTEMS: NEGATIVE EXCEPT FOR left hip pain CONSTITUTIONAL: No fever, no malaise, no fatigue. HEENT: No recent visual problems or hearing problems. Denied any sore throat. CARDIOVASCULAR: No chest pain, orthopnea, PND, no palpitations, no syncope. PULMONARY: No shortness of breath, no cough, no hemoptysis. GASTROINTESTINAL: No diarrhea, no nausea, no vomiting, no abdominal pain. NEUROLOGICAL: No headaches, no weakness, no numbness. HEMATOLOGICAL: Denies any bleeding or petechiae. GENITOURINARY: Denies any burning micturition, frequency, or urgency. MUSCULOSKELETAL/RHEUMATOLOGICAL: Denies any joint pain, swelling, or any muscle pain. ENDOCRINE: Denies any polyuria or polydipsia. PHYSICAL EXAMINATION: Vitals reviewed GENERAL: The patient is alert and oriented x3, sleeping easily arousable not in any acute distress. Well developed, well nourished. HEENT: Pupils are round and equally reacting to light. EOMI. No scleral icterus. No conjunctival pallor. Normocephalic, atraumatic. No pharyngeal erythema. No thyromegaly. CARDIOVASCULAR: S1 and S2 present. No murmurs, rubs, or gallops. PULMONARY: Chest is clear to auscultation, no wheezing or crackles. ABDOMEN: Soft, nontender, nondistended, normoactive bowel sounds. No palpable organomegaly. MUSCULOSKELETAL: No joint swelling or deformity. EXTREMITIES: Status post left hip fracture repair no hematoma noted NEUROLOGICAL: Gross neurological examination did not reveal any focal deficits. SKIN: No rashes. Assessment and plan * Status post fall left hip fracture s/p repair * Preoperative medical clearance for hip fracture repair * Hypertension * History of asthma per chart review * History of CHF per chart review * Follow up CBC and basic metabolic panel ordered * Continue patient on metoprolol, lisinopril held secondary to hypotension * Continue to monitor intake and output, caution with fluid status * Orthopedic team following and primary * Post procedure patient was placed on DVT prophylaxis per orthopedic discretion, patient on Lovenox * Will need PT OT evaluation for discharge disposition Objective - Vital Signs Vital signs: Vital Signs Temp 98.9 F 05/19/22 13:40 Pulse 122 H 05/19/22 13:40 Resp 16 05/19/22 13:40 BP 92/48 05/19/22 13:40 Pulse Ox 94 L 05/19/22 13:40 FiO2 21 05/18/22 17:45 Intake & Output 05/18/22 05/19/22 05/19/22 18:59 06:59 18:59 Intake Total 850 Output Total 650 150 Balance 200 -150 Weight 69.4 kg Intake: IV 850 Output: Urine 450 150 Estimated Blood Loss 200 Other: Voiding Method Urinal Urinal # Voids 2 - Labs CBC & Chem 7: 05/19/22 05:53 05/19/22 05:53 Labs: Abnormal Lab Results - Last 24 Hours (Table) 05/19/22 05/19/22 Range/Units 05:53 05:53 WBC 14.7 H (3.8-10.6) k/uL Neutrophils # 12.9 H (1.3-7.7) k/uL Lymphocytes # 0.7 L (1.0-4.8) k/uL BUN 27 H (9-20) mg/dL Creatinine 1.26 H (0.66-1.25) mg/dL Glucose 120 H (74-99) mg/dL
[2022-05-19] MEDS: SENNOSIDES-DOCUSATE SODIUM 1 EACH TAB PO SCH (19:58)
[2022-05-19] MEDS: TAMSULOSIN 0.4 MG CAP.ER.24H PO SCH (19:59)
[2022-05-20] MEDS: FINASTERIDE 5 MG TAB PO SCH (08:58)
[2022-05-20] MEDS: ENOXAPARIN 40 MG/0.4 ML SYRINGE SQ SCH (08:58)
[2022-05-20] MEDS: FERROUS SULFATE 325 MG TAB PO SCH (08:58)
[2022-05-20] MEDS: FLUTICASONE 50MCG/SPRAY NASAL 16GM EA NOSTRIL SCH (08:59)
[2022-05-20] MEDS: IPRATROPIUM-ALBUTEROL 3 ML NEB INHALATION SCH ×4 (09:09→19:54)
[2022-05-20] MEDS: METOPROLOL TARTRATE 12.5 MG TAB PO SCH (09:17)
[2022-05-20 10:58] LABS: HCT 31.8 % (39.6-50.0); HGB 10.2 g/dL (13.0-17.0); MCH 27.3 pg (27.0-32.0); MCHC 32.1 g/dL (32.0-37.0); MCV 85.3 fL (80.0-97.0); Mean Platelet Volume 9.8 fL (9.5-12.2); NRBC Per 100 WBC 0 /100 WBCS (0.0-0.0); Platelet Count 176 X 10*3/uL (140-440); RBC 3.73 X 10*6/uL (4.40-5.60); RDW 14.6 % (11.5-14.5); WBC 13.25 X 10*3/uL (4.50-10.00)
[2022-05-20 11:17] LABS: African American GFR (CKD) 61.6 (60.0-200.0); Anion Gap 8.5 mmol/L (10.00-18.00); BUN/Creat Ratio 26.19 Ratio (12.00-20.00); Calcium 8.3 mg/dL (8.7-10.3); Carbon Dioxide 21.9 mmol/L (20.0-27.5); Non-African American GFR(CKD) 53.1 (60.0-200.0); Potassium 4.5 mmol/L (3.5-5.5)
--- NOTE | 2022-05-20 11:42 | P.PN ---
Subjective Progress Note Date: 05/20/22 Principal diagnosis: Status post left hip hemiarthroplasty Patient was evaluated today at bedside, he is resting in his hospital chair. Physical therapy has been in to evaluate patient. Patient states that it was a little bit easier to transfer to a chair today. He still has been dealing with a low blood pressure. He notes minimal discomfort in the left lower extremity at this time. Objective - Vital Signs Vital signs: Vital Signs Temp 99.1 F 05/20/22 07:09 Pulse 120 H 05/20/22 10:29 Resp 18 05/20/22 07:09 BP 114/68 05/20/22 10:29 Pulse Ox 96 05/20/22 10:29 FiO2 21 05/18/22 17:45 Intake & Output 05/19/22 05/20/22 05/20/22 18:59 06:59 18:59 Intake Total 600 Output Total 200 300 Balance 400 -300 Intake: Intake, IV Titration 600 Amount Sodium Chloride 0.9% 1, 600 000 ml @ 50 mls/hr IV . Q20H [facility] Rx#:[id number] Output: Urine 200 300 Other: Voiding Method Urinal Urinal - Exam Left lower extremity: Incision is clean, dry, and intact. The foam dressing is in good condition. There is minimal soft tissue swelling and ecchymosis surrounding the medial and lateral aspects of the incision. Calf is soft, no tenderness with palpation. Plantar flexion, dorsiflexion, EHL, FHL are intact. Sensory exam to light touch throughout the extremity is intact, dorsal pedis pulses 2+. - Labs CBC & Chem 7: 05/20/22 05:34 05/20/22 05:34 Labs: Abnormal Lab Results - Last 24 Hours (Table) 05/20/22 05/20/22 Range/Units 05:34 05:34 WBC 13.25 H (4.50-10.00) X 10*3/uL RBC 3.73 L (4.40-5.60) X 10*6/uL Hgb 10.2 L (13.0-17.0) g/dL Hct 31.8 L (39.6-50.0) % RDW 14.6 H (11.5-14.5) % Anion Gap 8.50 L (10.00-18.00) mmol/L BUN 33.0 H (9.0-27.0) mg/dL Est GFR (CKD-EPI)NonAf 53.1 L (60.0-200.0) BUN/Creatinine Ratio 26.19 H (12.00-20.00) Ratio Glucose 144 H (70-110) mg/dL Calcium 8.3 L (8.7-10.3) mg/dL Assessment and Plan Assessment: Postoperative day #2 status post left hip hemiarthroplasty Acute blood loss anemia, expected surgical outcome Status post fall from standing Other medical comorbidities Plan: Pain control, continue low-dose with pain medication as needed DVT prophylaxis, continue subcu medication PT/OT evaluation after surgery Medical recommendations Discharge planning: Discussed with both patient and his significant other, they would like to have the patient discharged to home with home care, he has no interest in subcu rehab. Continue to monitor, hopeful discharge to home in the next 2448 hours Time with Patient: Less than 30
[2022-05-20 12:23] LABS: Basophils % (A) 0 %; Eosinophils % (A) 0 %; HCT 33.3 % (39.0-53.0); HGB 10.8 gm/dL (13.0-17.5); Lymphocytes # (A) 0.8 k/uL (1.0-4.8); Lymphocytes % (A) 6 %; MCH 27.4 pg (25.0-35.0); MCHC 32.4 g/dL (31.0-37.0); MCV 84.4 fL (80.0-100.0); Mean Platelet Volume 7.7; Monocytes # (A) 0.6 k/uL (0-1.0); Monocytes % (A) 5 %; Neutrophils # (A) 10.6 k/uL (1.3-7.7); Neutrophils % (A) 86 %; Platelet Count 196 k/uL (150-450); RBC 3.94 m/uL (4.30-5.90); RDW 14.1 % (11.5-15.5); WBC 12.3 k/uL (3.8-10.6)
[2022-05-20] MEDS: SODIUM CHLORIDE 0.9% 1,000 ML IV SCH ×2 (12:31→20:18)
--- NOTE | 2022-05-20 14:39 | P.PN ---
Subjective Progress Note Date: 05/20/22 Status post fall hip fracture 05/20. Patient seen and examined. Laying comfortably in the bed. Heart rate is elevated, could be secondary to pain. Denies any shortness of breath REVIEW OF SYSTEMS: CONSTITUTIONAL: No fever, no malaise,. CARDIOVASCULAR: No chest pain, no palpitations, no syncope. PULMONARY: No shortness of breath, no cough, GASTROINTESTINAL: No diarrhea, no nausea, no vomiting, no abdominal pain. NEUROLOGICAL: No headaches, no weakness, PHYSICAL EXAMINATION: GENERAL: The patient is alert and oriented x3, not in any acute distress. Well developed, well nourished. HEENT: Pupils are round and equally reacting to light. EOMI. No scleral icterus. No conjunctival pallor. Normocephalic, atraumatic. No pharyngeal erythema. No thyromegaly. CARDIOVASCULAR: S1 and S2 present. No murmurs, rubs, or gallops. Tachycardic PULMONARY: Chest is clear to auscultation, no wheezing or crackles. ABDOMEN: Soft, nontender, nondistended, normoactive bowel sounds. No palpable organomegaly. MUSCULOSKELETAL: Left hip surgical incision seen NEUROLOGICAL: Gross neurological examination did not reveal any focal deficits. SKIN: No rashes. Assessment and plan * Status post fall left hip fracture s/p repair * Preoperative medical clearance for hip fracture repair * Hypertension * History of asthma per chart review * History of CHF per chart review Plan * Monitor vital signs * Monitor CBC * Monitor CMP * Continue patient on metoprolol dose increased to 25 twice a day * lisinopril held secondary to hypotension * Continue to monitor intake and output, caution with fluid status * Orthopedic team following and primary * Post procedure patient was placed on DVT prophylaxis per orthopedic discretion, patient on Lovenox : Objective - Vital Signs Vital signs: Vital Signs Temp 99.1 F 05/20/22 07:09 Pulse 117 H 05/20/22 09:19 Resp 18 05/20/22 07:09 BP 97/59 05/20/22 07:09 Pulse Ox 95 05/20/22 09:11 FiO2 21 05/18/22 17:45 Intake & Output 05/19/22 05/20/22 05/20/22 18:59 06:59 18:59 Intake Total 600 Output Total 200 300 Balance 400 -300 Intake: Intake, IV Titration 600 Amount Sodium Chloride 0.9% 1, 600 000 ml @ 50 mls/hr IV . Q20H [facility] Rx#:[id number] Output: Urine 200 300 Other: Voiding Method Urinal Urinal - Labs CBC & Chem 7: 05/20/22 11:46 05/20/22 05:34
[2022-05-20] MEDS: BACITRACIN OINT 1 EACH PACKET TOPICAL PRN (15:09)
[2022-05-20] MEDS: METOPROLOL TARTRATE 25 MG TAB PO SCH (20:18)
[2022-05-20] MEDS: SENNOSIDES-DOCUSATE SODIUM 1 EACH TAB PO SCH (20:18)
[2022-05-20] MEDS: TAMSULOSIN 0.4 MG CAP.ER.24H PO SCH (20:18)
[2022-05-21] MEDS: METOPROLOL TARTRATE 25 MG TAB PO SCH ×3 (08:23→21:38)
[2022-05-21] MEDS: BUDESONIDE 0.5 MG/2 ML NEBU INHALATION PRN ×2 (08:59→20:34)
[2022-05-21] MEDS: IPRATROPIUM-ALBUTEROL 3 ML NEB INHALATION SCH ×4 (08:59→20:34)
[2022-05-21] MEDS: FERROUS SULFATE 325 MG TAB PO SCH (09:20)
[2022-05-21] MEDS: FLUTICASONE 50MCG/SPRAY NASAL 16GM EA NOSTRIL SCH (09:20)
[2022-05-21] MEDS: FINASTERIDE 5 MG TAB PO SCH (09:20)
[2022-05-21] MEDS: ENOXAPARIN 40 MG/0.4 ML SYRINGE SQ SCH (09:20)
[2022-05-21 11:13] LABS: HCT 28.5 % (39.6-50.0); MCH 27.2 pg (27.0-32.0); MCHC 31.6 g/dL (32.0-37.0); MCV 86.1 fL (80.0-97.0); Mean Platelet Volume 9.9 fL (9.5-12.2); NRBC Per 100 WBC 0 /100 WBCS (0.0-0.0); Platelet Count 175 X 10*3/uL (140-440); RBC 3.31 X 10*6/uL (4.40-5.60); RDW 14.5 % (11.5-14.5); WBC 10.56 X 10*3/uL (4.50-10.00)
[2022-05-21 11:24] LABS: Albumin 2.7 g/dL (3.8-4.9); Albumin/Globulin Ratio 1.48 (1.60-3.17); Anion Gap 7.2 mmol/L (10.00-18.00); BUN/Creat Ratio 26.32 Ratio (12.00-20.00); Calcium 8.1 mg/dL (8.7-10.3); Carbon Dioxide 21.7 mmol/L (20.0-27.5); Globulin 1.8 g/dL (1.6-3.3); Non-African American GFR(CKD) 78.6 (60.0-200.0); Potassium 4.3 mmol/L (3.5-5.5); Total Bilirubin 0.5 mg/dL (0.30-1.20); Total Protein 4.5 g/dL (6.2-8.2)
--- NOTE | 2022-05-21 13:09 | P.PN ---
Subjective Progress Note Date: 05/21/22 Status post fall hip fracture 05/20. Patient seen and examined. Laying comfortably in the bed. Heart rate is elevated, could be secondary to pain. Denies any shortness of breath 05/21. Patient seen and examined. Patient doing much better today. Currently sitting in the chair. at the bedside, they're very happy with the progress. Heart rate is better controlled REVIEW OF SYSTEMS: CONSTITUTIONAL: No fever, no malaise,. CARDIOVASCULAR: No chest pain, no palpitations, no syncope. PULMONARY: No shortness of breath, no cough, GASTROINTESTINAL: No diarrhea, no nausea, no vomiting, no abdominal pain. NEUROLOGICAL: No headaches, no weakness, PHYSICAL EXAMINATION: GENERAL: The patient is alert and oriented x3, not in any acute distress. Well developed, well nourished. HEENT: Pupils are round and equally reacting to light. EOMI. No scleral icterus. No conjunctival pallor. Normocephalic, atraumatic. No pharyngeal erythema. No thyromegaly. CARDIOVASCULAR: S1 and S2 present. No murmurs, rubs, or gallops. PULMONARY: Chest is clear to auscultation, no wheezing or crackles. ABDOMEN: Soft, nontender, nondistended, normoactive bowel sounds. No palpable organomegaly. MUSCULOSKELETAL: Left hip surgical incision seen NEUROLOGICAL: Gross neurological examination did not reveal any focal deficits. SKIN: No rashes. Assessment and plan * Status post fall left hip fracture s/p repair * Preoperative medical clearance for hip fracture repair * Hypertension * History of asthma per chart review * History of CHF per chart review Plan * Monitor vital signs * Monitor CBC * Monitor CMP * Continue Lopressor 25 twice a day * Continue to hold lisinopril for now * Continue to monitor intake and output, caution with fluid status * Orthopedic team following and primary * DVT prophylaxis per orthopedics : Objective - Vital Signs Vital signs: Vital Signs Temp 98.5 F 05/21/22 11:21 Pulse 98 05/21/22 12:21 Resp 16 05/21/22 11:21 BP 98/61 05/21/22 11:21 Pulse Ox 93 L 05/21/22 11:21 FiO2 21 05/18/22 17:45 Intake & Output 05/20/22 05/21/22 05/21/22 18:59 06:59 18:59 Intake Total 360 Output Total 300 Balance 60 Intake: Oral 360 Output: Urine 300 Other: Voiding Method Urinal # Voids 2 - Labs CBC & Chem 7: 05/21/22 07:32 05/21/22 07:32 Labs: Abnormal Lab Results - Last 24 Hours (Table) 05/21/22 05/21/22 Range/Units 07:32 07:32 WBC 10.56 H (4.50-10.00) X 10*3/uL RBC 3.31 L (4.40-5.60) X 10*6/uL Hgb 9.0 L (13.0-17.0) g/dL Hct 28.5 L (39.6-50.0) % MCHC 31.6 L (32.0-37.0) g/dL Anion Gap 7.20 L (10.00-18.00) mmol/L BUN/Creatinine Ratio 26.32 H (12.00-20.00) Ratio Glucose 119 H (70-110) mg/dL Calcium 8.1 L (8.7-10.3) mg/dL ALT 9 L (10-49) U/L Total Protein 4.5 L (6.2-8.2) g/dL Albumin 2.7 L (3.8-4.9) g/dL Albumin/Globulin Ratio 1.48 L (1.60-3.17) g/dL
--- NOTE | 2022-05-21 14:08 | P.PN ---
Subjective Progress Note Date: 05/21/22 Principal diagnosis: Left hip femoral neck fracture Patient was seen at bedside this morning sitting up in the chair. Surgical dressing is in place over left hip. Dressing appears to be intact. Negative for any spotting. There is some ecchymosis present. Patient says he did get up with therapy earlier this morning and did okay. Patient says he is needing assistance when he is walking. Patient says he has been using walker while in the hospital since surgery. Patient's was a bedside during the encounter. and patient did discuss rehab versus going home with home care options and at this time we'll move forward with rehab. of patient did speak with rn case manager hospice and rn case manager hospice is currently working on this for rehab placement. Patient denies having any pain currently in the left hip. Patient does mentions left hip is feeling a little bit sore at this time. Patient denies chest pain, fever, shortness breath, nausea, vomiting, change in vision, loss of bowel/bladder control. Objective - Vital Signs Vital signs: Vital Signs Temp 98.5 F 05/21/22 07:26 Pulse 102 H 05/21/22 09:13 Resp 16 05/21/22 07:26 BP 98/61 05/21/22 07:26 Pulse Ox 96 05/21/22 08:59 FiO2 21 05/18/22 17:45 Intake & Output 05/20/22 05/21/22 05/21/22 18:59 06:59 18:59 Intake Total 360 Output Total 300 Balance 60 Intake: Oral 360 Output: Urine 300 Other: Voiding Method Urinal # Voids 2 - Exam Surgical dressing in place over left hip. Negative for any spotting. [place] are well aligned and intact. Ecchymosis is present over the incision. Negative for any open fractures, significant erythema/active drainage. Sensation is equal, symmetric on bilateral intact throughout the upper and lower extremities. There is some mild tenderness to palpation over the incision on the left hip. Nontender to palpation throughout rest of exam. Patient has full range of motion in the left hip secondary to surgery. Patient has full range of motion bilateral upper extremities and right lower extremity on exam. Motor exam 4/5 in resisted left hip flexion/extension. 4+/5 in all other major milligrams in bilateral lower extremities and bilateral upper extremities. Neurovascular status intact bilaterally. Radial pulses intact bilaterally. Cap refill under 3 seconds in digits the upper extremities. Negative [place] bilaterally. - Labs CBC & Chem 7: 05/21/22 07:32 05/21/22 07:32 Labs: Abnormal Lab Results - Last 24 Hours (Table) 05/20/22 05/20/22 05/21/22 Range/Units 05:34 11:46 07:32 WBC 12.3 H 10.56 H (3.8-10.6) k/uL RBC 3.94 L 3.31 L (4.30-5.90) m/uL Hgb 10.8 L 9.0 L (13.0-17.5) gm/dL Hct 33.3 L 28.5 L (39.0-53.0) % MCHC 31.6 L (32.0-37.0) g/dL Neutrophils # 10.6 H (1.3-7.7) k/uL Lymphocytes # 0.8 L (1.0-4.8) k/uL Anion Gap 8.50 L (10.00-18.00) mmol/L BUN 33.0 H (9.0-27.0) mg/dL Est GFR (CKD-EPI)NonAf 53.1 L (60.0-200.0) BUN/Creatinine Ratio 26.19 H (12.00-20.00) Ratio Glucose 144 H (70-110) mg/dL Calcium 8.3 L (8.7-10.3) mg/dL Assessment and Plan Assessment: 1. Left hip femoral neck fracture Postoperative day #3 status post left hip hemiarthroplasty Plan: 1. Left hip femoral neck fracture - patient stable at bedside this morning. Was present during encounter. We'll plan for discharge to rehab when authorization is completed. Surgical dressing is clean, dry, intact. We will maintain dressing at this time. We will continue to follow patient during his stay in hospital. Pain medication as needed. Continue Lovenox daily. Plan for discharge to rehab today versus tomorrow 2. Appreciate medical management 3. Pain management - [place]; Tylenol 4. DVT prophylaxis - Lovenox 5. GI prophylaxis - senna 6. PT/OT - weightbearing as tolerated with walker and assistance 7. Encourage incentive spirometer use 8. Discharge planning - discharge to rehab today versus tomorrow when auth completed Time with Patient: Less than 30
[2022-05-21] MEDS: HYDROcodone/APAP 5-325MG 1 EACH TAB PO PRN (15:20)
[2022-05-21] MEDS: SENNOSIDES-DOCUSATE SODIUM 1 EACH TAB PO SCH (21:37)
[2022-05-21] MEDS: SODIUM CHLORIDE 0.9% 1,000 ML IV SCH (21:38)
[2022-05-21] MEDS: TAMSULOSIN 0.4 MG CAP.ER.24H PO SCH (21:38)
[2022-05-22] MEDS: IPRATROPIUM-ALBUTEROL 3 ML NEB INHALATION SCH ×4 (08:35→20:20)
[2022-05-22] MEDS: FLUTICASONE 50MCG/SPRAY NASAL 16GM EA NOSTRIL SCH (09:30)
[2022-05-22] MEDS: ENOXAPARIN 40 MG/0.4 ML SYRINGE SQ SCH (09:31)
[2022-05-22] MEDS: FINASTERIDE 5 MG TAB PO SCH (09:31)
[2022-05-22] MEDS: FERROUS SULFATE 325 MG TAB PO SCH (09:31)
[2022-05-22] MEDS: METOPROLOL TARTRATE 25 MG TAB PO SCH ×2 (09:31→20:10)
--- NOTE | 2022-05-22 11:34 | P.PN ---
Subjective Progress Note Date: 05/22/22 Principal diagnosis: Status post left hip hemiarthroplasty Patient was evaluated today at bedside, he is resting in his hospital bed. Pain is currently controlled. He notes minimal discomfort in the left lower extremity at this time. Objective - Vital Signs Vital signs: Vital Signs Temp 98.4 F 05/22/22 08:00 Pulse 84 05/22/22 08:43 Resp 18 05/22/22 08:00 BP 128/67 05/22/22 08:00 Pulse Ox 94 L 05/22/22 08:00 FiO2 21 05/18/22 17:45 Intake & Output 05/21/22 05/22/22 05/22/22 18:59 06:59 18:59 Intake Total 240 840 Output Total 300 1050 Balance -60 -210 Intake: Intake, IV Titration 600 Amount Sodium Chloride 0.9% 1, 600 000 ml @ 50 mls/hr IV . Q20H [facility] Rx#:[id number] Oral 240 240 Output: Urine 300 1050 Other: Voiding Method Urinal Urinal - Exam Left lower extremity: Incision is clean, dry, and intact. The foam dressing is in good condition. There is minimal soft tissue swelling and ecchymosis surrounding the medial and lateral aspects of the incision. Calf is soft, no tenderness with palpation. Plantar flexion, dorsiflexion, EHL, FHL are intact. Sensory exam to light touch throughout the extremity is intact, dorsal pedis pulses 2+. - Labs CBC & Chem 7: 05/21/22 07:32 05/21/22 07:32 Assessment and Plan Assessment: Postoperative day #3 status post left hip hemiarthroplasty Acute blood loss anemia, expected surgical outcome Status post fall from standing Other medical comorbidities Plan: Pain control, continue low-dose with pain medication as needed DVT prophylaxis, continue subcu medication PT/OT evaluation after surgery Medical recommendations Discharge planning: stable for discharge to rehab, hopeful today pending auth Time with Patient: Less than 30
--- NOTE | 2022-05-22 11:36 | P.DS ---
Providers Date of admission: 05/17/22 20:57 Expected date of discharge: 05/22/22 Attending physician: Panfilo Hodges DO Consults: 05/17/22 20:55 Consult Physician Urgent Consulting Provider: Lex Stephens Consult Reason/Comments: Surgical clearance, medical management Do you want consulting provider notified?: Yes Primary care physician: Kt Wolf MD Hospital Course: Date of admission: 05/17/2022 Date of discharge: 05/22/2022 Admission diagnosis: Displaced left femoral neck fracture Discharge diagnosis: Status post left hip hemiarthroplasty Attending physician: Dr. Hodges Surgical procedures: Left hip hemiarthroplasty Brief history: Patient is a 81-year-old male who presented to [facility] on 05/17/2022 for evaluation of a left lower extremity injury. Patient did fall at home while ambulating on his deck. After arriving at the hospital imaging test did demonstrate a displaced left femoral neck fracture. Patient was admitted under our orthopedic care with plan for surgical intervention, internal medicine was consulted for clearance is in management. Hospital course: Details of patient's surgery can be found in operative report. Patient tolerated the procedure well and was subsequently transported to orthopedic floor. Patient's orthopeidc and medical care was provided daily. Patient had daily laboratory tests performed for evaluation of overall blood counts. Patient had daily physical therapy to include strengthening range of motion as well as education with walker ambulation. Patient was treated with Lovenox for their postoperative DVT prophylaxis during their inpatient stay. Patient was noted to have a relatively uneventful postoperative course. Patient reported satisfactory pain control with oral pain medications by postoperative day 0. Patient showed satisfactory progress with physical therapy. Patient moved steadily through the program and had no difficulty meeting the goals by postoperative day 3. Given patient's otherwise satisfactory course and having met physical therapy goals, plan is to discharge patient subacute rehab on postoperative day 3. Discharge condition/disposition: Patient will be discharged subacute rehab in stable condition. Discharge medications: Instructions are given on resumption of patient's normal daily medications per primary care recommendation, in addition patient will be prescribed [place] 5 mg/325 mg, Senokot-S, Lovenox 40 mg. Discharge instructions: 1. Wound care and infection precautions, keep incision dry and covered while showering, no lotions, creams, moisturizers. No soaking, tubs, pools, hottubs. Do not scrub over the incision. 2. Weight-bear as tolerated with walker / cane until follow-up. 3. Ice and elevate when necessary. Do not exceed 20 minutes per hour with ice pack. 4. Utilize compression sleeve until seen at first follow up appointment. 5. Visiting nursing care. 6. Home physical therapy. 7. Pain meds and anticoagulants per prescription. 8. Pain medication has potential to cause constipation. Increase oral fluid and fiber intake. Contact primary care provider if you have not had a bowel movement within 48 hours after discharge 9. No anti-inflammatory medication until discussed at first post operative visit, this including Motrin, Aleve, Mobic, Diclofenac. 10. Follow up in office at 2 weeks postop with Hi Veliz PA-C/Rayo Tellez 11. Follow up with your primary care doctor 7-10 days after discharge. 12. Contact [facility] with any questions, . Procedures: Left hip hemiarthroplasty Patient Condition at Discharge: Fair Plan - Discharge Summary Discharge Rx Participant: No New Discharge Prescriptions: New HYDROcodone/APAP 5-325MG [[place] 5-325] 1 tab PO Q6HR PRN #21 tab PRN Reason: Pain Enoxaparin [Lovenox] 40 mg SQ DAILY #28 each Sennosides/Docusate Sodium [Senna Plus 8.6-50 mg Softgel] 1 each PO DAILY #20 capsule No Action Ipratropium-Albuterol Nebulize [Duoneb 0.5 mg-3 mg/3 ml Soln] 3 ml INHALATION RT-QID Budesonide [Pulmicort] 0.5 mg INHALATION RT-BID lisinopriL [Zestril] 10 mg PO DAILY Tamsulosin [Flomax] 0.4 mg PO HS Fluticasone Nasal [place] [Flonase Nasal [place]] 2 spr EA NOSTRIL DAILY Metoprolol Tartrate [Lopressor] 12.5 mg PO BID Potassium Chloride ER [K-Dur 20] 20 meq PO DAILY Ipratropium/Albuter 20-100Mcg [Combivent Respimat 20-100Mcg Inhaler] 1 puff INHALATION RT-BID PRN PRN Reason: Shortness Of Breath Multivitamins, Thera [Multivitamin (formulary)] 1 tab PO HS Finasteride [Proscar] 5 mg PO DAILY Ferrous Sulfate [Iron (65 MG Elemental)] 325 mg PO DAILY Aspirin EC [Ecotrin Low Dose] 81 mg PO DAILY Discharge Medication List Budesonide [Pulmicort] 0.5 mg INHALATION RT-BID 10/22/20 [History] Fluticasone Nasal [place] [Flonase Nasal [place]] 2 spr EA NOSTRIL DAILY 10/22/20 [History] Ipratropium-Albuterol Nebulize [Duoneb 0.5 mg-3 mg/3 ml Soln] 3 ml INHALATION RT-QID 10/22/20 [History] Metoprolol Tartrate [Lopressor] 12.5 mg PO BID 10/22/20 [History] Tamsulosin [Flomax] 0.4 mg PO HS 10/22/20 [History] lisinopriL [Zestril] 10 mg PO DAILY 10/22/20 [History] Aspirin EC [Ecotrin Low Dose] 81 mg PO DAILY 05/17/22 [History] Ferrous Sulfate [Iron (65 MG Elemental)] 325 mg PO DAILY 05/17/22 [History] Finasteride [Proscar] 5 mg PO DAILY 05/17/22 [History] Ipratropium/Albuter 20-100Mcg [Combivent Respimat 20-100Mcg Inhaler] 1 puff IN HALATION RT-BID PRN 05/17/22 [History] Multivitamins, Thera [Multivitamin (formulary)] 1 tab PO HS 05/17/22 [History] Potassium Chloride ER [K-Dur 20] 20 meq PO DAILY 05/17/22 [History] Enoxaparin [Lovenox] 40 mg SQ DAILY #28 each 05/21/22 [Rx] HYDROcodone/APAP 5-325MG [[place] 5-325] 1 tab PO Q6HR PRN #21 tab 05/21/22 [Rx] Sennosides/Docusate Sodium [Senna Plus 8.6-50 mg Softgel] 1 each PO DAILY #20 capsule 05/21/22 [Rx] Follow up Appointment(s)/Referral(s): Kt Wolf MD [Primary Care Provider] - 1-2 days Panfilo Hodges DO [Doctor of Osteopathic Medicine] - 2 Weeks Activity/Diet/Wound Care/Special Instructions: script for hospital bed at [facility] when the pt is getting d/c for ECF and have them deliver the bed. Orthopedic Discharge Instructions: 1. Wound care and infection precautions, keep incision dry and covered while showering, no lotions, creams, moisturizers. No soaking, pools, hot tubs. Do not scrub over incision. 2. Weight-bear as tolerated with walker / cane until follow-up. Abductor pillow while in bed 3. Ice and elevate when necessary. Do not exceed 20 minutes per hour with ice pack. 4. Utilize compression sleeve until seen at first follow up appointment. 5. Pain meds and anticoagulants per prescription. 6. Pain medication has potential to cause constipation. Increase oral fluid and fiber intake. Contact primary care provider if you have not had a bowel movement within 48 hours after discharge. 7. No anti-inflammatory medication until discussed at first post operative visit, this including Motrin, Aleve, Mobic, Diclofenac. 8. Follow up in office at 2 weeks postop with Hi Veliz PA-C/Rayo Walsh PA-C 9. Follow up with your primary care doctor 7-10 days after discharge. 10. Contact [facility] with any questions, . Discharge Disposition: TRANSFER TO SNF/ECF
[2022-05-22] MEDS: HYDROcodone/APAP 5-325MG 1 EACH TAB PO PRN ×2 (14:03→20:10)
--- NOTE | 2022-05-22 14:56 | P.PN ---
Subjective Progress Note Date: 05/22/22 Status post fall hip fracture 05/20. Patient seen and examined. Laying comfortably in the bed. Heart rate is elevated, could be secondary to pain. Denies any shortness of breath 05/21. Patient seen and examined. Patient doing much better today. Currently sitting in the chair. at the bedside, they're very happy with the progress. Heart rate is better controlled 05/22. Patient seen and examined. No acute issues overnight REVIEW OF SYSTEMS: CONSTITUTIONAL: No fever, no malaise,. CARDIOVASCULAR: No chest pain, no palpitations, no syncope. PULMONARY: No shortness of breath, no cough, GASTROINTESTINAL: No diarrhea, no nausea, no vomiting, no abdominal pain. NEUROLOGICAL: No headaches, no weakness, PHYSICAL EXAMINATION: GENERAL: The patient is alert and oriented x3, not in any acute distress. Well developed, well nourished. HEENT: Pupils are round and equally reacting to light. EOMI. No scleral icterus. No conjunctival pallor. Normocephalic, atraumatic. No pharyngeal erythema. No thyromegaly. CARDIOVASCULAR: S1 and S2 present. No murmurs, rubs, or gallops. PULMONARY: Chest is clear to auscultation, no wheezing or crackles. ABDOMEN: Soft, nontender, nondistended, normoactive bowel sounds. No palpable organomegaly. MUSCULOSKELETAL: Left hip surgical incision seen NEUROLOGICAL: Gross neurological examination did not reveal any focal deficits. SKIN: No rashes. Assessment and plan * Status post fall left hip fracture s/p repair * Preoperative medical clearance for hip fracture repair * Hypertension * History of asthma per chart review * History of CHF per chart review Plan * Monitor vital signs * Monitor CBC * Monitor CMP * Continue Lopressor 25 twice a day * Continue to hold lisinopril for now * Continue to monitor intake and output, caution with fluid status * Orthopedic team following and primary * DVT prophylaxis per orthopedics * PT and OT recommended rehab, waiting on insurance authorization : Objective - Vital Signs Vital signs: Vital Signs Temp 98.4 F 05/22/22 08:00 Pulse 84 05/22/22 08:43 Resp 18 05/22/22 08:00 BP 128/67 05/22/22 08:00 Pulse Ox 92 L 05/22/22 12:24 FiO2 21 05/18/22 17:45 Intake & Output 05/21/22 05/22/22 05/22/22 18:59 06:59 18:59 Intake Total 240 840 Output Total 300 1050 Balance -60 -210 Intake: Intake, IV Titration 600 Amount Sodium Chloride 0.9% 1, 600 000 ml @ 50 mls/hr IV . Q20H [facility] Rx#:[id number] Oral 240 240 Output: Urine 300 1050 Other: Voiding Method Urinal Urinal - Labs CBC & Chem 7: 05/21/22 07:32 05/21/22 07:32
[2022-05-22] MEDS: BACITRACIN OINT 1 EACH PACKET TOPICAL PRN (17:00)
[2022-05-22] MEDS: SODIUM CHLORIDE 0.9% 1,000 ML IV SCH (17:10)
[2022-05-22] MEDS: SENNOSIDES-DOCUSATE SODIUM 1 EACH TAB PO SCH (20:10)
[2022-05-22] MEDS: TAMSULOSIN 0.4 MG CAP.ER.24H PO SCH (20:10)
[2022-05-22] MEDS: BUDESONIDE 0.5 MG/2 ML NEBU INHALATION PRN (20:21)
[2022-05-23] MEDS: FLUTICASONE 50MCG/SPRAY NASAL 16GM EA NOSTRIL SCH (07:51)
[2022-05-23] MEDS: FINASTERIDE 5 MG TAB PO SCH (07:53)
[2022-05-23] MEDS: FERROUS SULFATE 325 MG TAB PO SCH (07:53)
[2022-05-23] MEDS: METOPROLOL TARTRATE 25 MG TAB PO SCH ×2 (07:53→20:18)
[2022-05-23] MEDS: ENOXAPARIN 40 MG/0.4 ML SYRINGE SQ SCH (07:53)
[2022-05-23] MEDS: IPRATROPIUM-ALBUTEROL 3 ML NEB INHALATION SCH ×4 (08:42→19:36)
--- NOTE | 2022-05-23 09:19 | P.PN ---
Subjective Progress Note Date: 05/23/22 Principal diagnosis: Status post left hip hemiarthroplasty Patient was evaluated today at bedside, he is resting in his hospital chair. Pain is currently controlled. He notes minimal discomfort in the left lower extremity at this time. Authorization was not approved for subacute rehab yesterday, patient remains in hospital. Objective - Vital Signs Vital signs: Vital Signs Temp 99.0 F 05/23/22 07:55 Pulse 84 05/23/22 08:54 Resp 18 05/23/22 07:55 BP 104/62 05/23/22 07:55 Pulse Ox 92 L 05/23/22 07:55 FiO2 21 05/18/22 17:45 Intake & Output 05/22/22 05/23/22 05/23/22 18:59 06:59 18:59 Intake Total 600 720 Output Total 700 Balance 600 20 Intake: Intake, IV Titration 600 600 Amount Sodium Chloride 0.9% 1, 600 600 000 ml @ 50 mls/hr IV . Q20H [facility] Rx#:[id number] Oral 120 Output: Urine 700 Other: Voiding Method Urinal Urinal # Voids 4 - Exam Left lower extremity: Incision is clean, dry, and intact. The foam dressing is in good condition. There is minimal soft tissue swelling and ecchymosis surrounding the medial and lateral aspects of the incision. Calf is soft, no tenderness with palpation. Plantar flexion, dorsiflexion, EHL, FHL are intact. Sensory exam to light touch throughout the extremity is intact, dorsal pedis pulses 2+. - Labs CBC & Chem 7: 05/21/22 07:32 05/21/22 07:32 Assessment and Plan Assessment: Postoperative day #4 status post left hip hemiarthroplasty Acute blood loss anemia, expected surgical outcome Status post fall from standing Other medical comorbidities Plan: Pain control, continue low-dose with pain medication as needed DVT prophylaxis, continue subcu medication Dressing change on 05/24/2022 PT/OT, weightbear as tolerated Medical recommendations Discharge planning: Stable for discharge on orthopedic standpoint, waiting on authorization for rehab Time with Patient: Less than 30
--- NOTE | 2022-05-23 14:29 | P.PN ---
Subjective Progress Note Date: 05/23/22 Status post fall hip fracture 05/20. Patient seen and examined. Laying comfortably in the bed. Heart rate is elevated, could be secondary to pain. Denies any shortness of breath 05/21. Patient seen and examined. Patient doing much better today. Currently sitting in the chair. at the bedside, they're very happy with the progress. Heart rate is better controlled 05/22. Patient seen and examined. No acute issues overnight 05/23 patient seen and examined. Currently waiting on insurance authorization for discharge to rehab facility. Vital signs this morning are temperature 90.9, heart rate 84, respirations 18, blood pressure 104/62 REVIEW OF SYSTEMS: CONSTITUTIONAL: No fever, no malaise,. CARDIOVASCULAR: No chest pain, no palpitations, no syncope. PULMONARY: No shortness of breath, no cough, GASTROINTESTINAL: No diarrhea, no nausea, no vomiting, no abdominal pain. NEUROLOGICAL: No headaches, no weakness, PHYSICAL EXAMINATION: GENERAL: The patient is alert and oriented x3, not in any acute distress. Well developed, well nourished. HEENT: Pupils are round and equally reacting to light. EOMI. No scleral icterus. No conjunctival pallor. Normocephalic, atraumatic. No pharyngeal erythema. No thyromegaly. CARDIOVASCULAR: S1 and S2 present. No murmurs, rubs, or gallops. PULMONARY: Chest is clear to auscultation, no wheezing or crackles. ABDOMEN: Soft, nontender, nondistended, normoactive bowel sounds. No palpable organomegaly. MUSCULOSKELETAL: Left hip surgical incision seen NEUROLOGICAL: Gross neurological examination did not reveal any focal deficits. SKIN: No rashes. Assessment and plan * Status post fall left hip fracture s/p repair * Preoperative medical clearance for hip fracture repair * Hypertension * History of asthma per chart review * History of CHF per chart review Plan * Monitor vital signs * Continue Lopressor 25 twice a day * Continue to hold lisinopril for now * Continue to monitor intake and output, caution with fluid status * Orthopedic team following and primary * DVT prophylaxis per orthopedics * PT and OT recommended rehab, waiting on insurance authorization : Objective - Vital Signs Vital signs: Vital Signs Temp 99.0 F 05/23/22 07:55 Pulse 84 05/23/22 08:54 Resp 18 05/23/22 07:55 BP 104/62 05/23/22 07:55 Pulse Ox 92 L 05/23/22 07:55 FiO2 21 05/18/22 17:45 Intake & Output 05/22/22 05/23/22 05/23/22 18:59 06:59 18:59 Intake Total 600 720 Output Total 700 Balance 600 20 Intake: Intake, IV Titration 600 600 Amount Sodium Chloride 0.9% 1, 600 600 000 ml @ 50 mls/hr IV . Q20H [facility] Rx#:[id number] Oral 120 Output: Urine 700 Other: Voiding Method Urinal Urinal # Voids 4 - Labs CBC & Chem 7: 05/21/22 07:32 05/21/22 07:32
[2022-05-23] MEDS: SODIUM CHLORIDE 0.9% 1,000 ML IV SCH (15:37)
[2022-05-23] MEDS: BUDESONIDE 0.5 MG/2 ML NEBU INHALATION PRN (19:36)
[2022-05-23] MEDS: SENNOSIDES-DOCUSATE SODIUM 1 EACH TAB PO SCH (20:18)
[2022-05-23] MEDS: TAMSULOSIN 0.4 MG CAP.ER.24H PO SCH (20:18)
[2022-05-24] MEDS: ENOXAPARIN 40 MG/0.4 ML SYRINGE SQ SCH (08:09)
[2022-05-24] MEDS: FLUTICASONE 50MCG/SPRAY NASAL 16GM EA NOSTRIL SCH (08:09)
[2022-05-24] MEDS: FERROUS SULFATE 325 MG TAB PO SCH (08:10)
[2022-05-24] MEDS: METOPROLOL TARTRATE 25 MG TAB PO SCH (08:10)
[2022-05-24] MEDS: FINASTERIDE 5 MG TAB PO SCH (08:10)
[2022-05-24] MEDS: IPRATROPIUM-ALBUTEROL 3 ML NEB INHALATION SCH ×2 (08:33→11:56)
--- NOTE | 2022-05-24 08:42 | P.PN ---
Subjective Progress Note Date: 05/24/22 Principal diagnosis: Fall from Standing Left leg injury Left femoral neck fracture Patient seen and examined at bedside. No acute events overnight. Patient denies any pain at this time. He is looking forward to getting to rehab and being able to get back home. Patient denies any needs at this time. Surgical dressing is CDI. He has been afebrile, denies nausea/vomiting, or chest pain. Objective - Vital Signs Vital signs: Vital Signs Temp 98.4 F 05/24/22 07:18 Pulse 86 05/24/22 07:18 Resp 16 05/24/22 07:18 BP 145/75 05/24/22 07:18 Pulse Ox 93 L 05/24/22 07:18 FiO2 21 05/18/22 17:45 Intake & Output 05/23/22 05/24/22 05/24/22 18:59 06:59 18:59 Output Total 650 400 Balance -650 -400 Output: Urine 650 400 Other: Voiding Method Urinal # Voids 4 - Exam Left lower extremity: Incision is clean, dry, and intact. The surgical dressing is clean, dry, and intact. There is minimal soft tissue swelling and ecchymosis surrounding the medial and lateral aspects of the incision. Calf is soft, no tenderness with palpation. Plantar flexion, dorsiflexion, EHL, FHL are intact. Sensory exam to light touch throughout the extremity is intact, dorsal pedis pulses 2+. - Labs CBC & Chem 7: 05/21/22 07:32 05/21/22 07:32 Assessment and Plan Assessment: Post-op day 5: Status post left hip hemiarthroplasty Acute blood loss anemia, expected surgical outcome Status post fall from standing Other medical comorbidities Plan: Pain control, continue low-dose with pain medication as needed DVT prophylaxis, continue subcu medication PT/OT, weightbear as tolerated Medical recommendations Discharge planning: Stable for discharge on orthopedic standpoint, waiting on authorization for rehab Time with Patient: Less than 30
--- NOTE | 2022-05-24 09:47 | P.DS ---
Providers Date of admission: 05/17/22 20:57 Expected date of discharge: 05/24/22 Attending physician: Panfilo Hodges DO Consults: 05/17/22 20:55 Consult Physician Urgent Consulting Provider: Lex Stephens Consult Reason/Comments: Surgical clearance, medical management Do you want consulting provider notified?: Yes Primary care physician: Kt Wolf MD Hospital Course: Date of admission: 05/18/2022 Date of discharge: 05/24/2022 Admission diagnosis: Left hip femoral neck fracture Discharge diagnosis: same Attending physician: Dr. Hodges Surgical procedures: left hip hemiarthroplasty Brief history: Patient is a 81-year-old male with a history of left hip femoral neck fracture status post fall. At this point patient has failed conservative treatment measures and has opted to proceed with a elective left hip hemiarthroplasty. Hospital course: Details of patient's surgery can be found in operative report. Patient tolerated the procedure well and was subsequently transported to orthopedic floor. Patient's orthopeidc and medical care was provided daily. Patient had daily laboratory tests performed for evaluation of overall blood counts. Patient had daily physical therapy to include strengthening range of motion as well as education with walker ambulation. Patient was treated with Lovenox for their postoperative DVT prophylaxis during their inpatient stay. Patient was noted to have a relatively uneventful postoperative course. Patient reported satisfactory pain control with oral pain medications by postoperative day 6. Patient showed satisfactory progress with physical therapy. Patient moved steadily through the program and had no difficulty meeting the goals by postoperative day 6. Given patient's otherwise satisfactory course and having met physical therapy goals, plan is to discharge patient to rehab on postoperative day 6. Discharge condition/disposition: Patient will be discharged to rehab in stable condition. Discharge medications: Instructions are given on resumption of patient's normal daily medications per primary care recommendation, in addition patient will be prescribed Markesan; Lovenox, senna. Discharge instructions: 1. Wound care and infection precautions, keep incision dry and covered while showering, no lotions, creams, moisturizers. No soaking, tubs, pools, hottubs. Do not scrub over the incision. 2. Weight-bear as tolerated with walker / cane until follow-up. 3. Ice and elevate when necessary. Do not exceed 20 minutes per hour with ice pack. 4. Utilize compression sleeve until seen at first follow up appointment. 5. Visiting nursing care. 6. Physical therapy 7. Pain meds and anticoagulants per prescription. 8. Pain medication has potential to cause constipation. Increase oral fluid and fiber intake. Contact primary care provider if you have not had a bowel movement within 48 hours after discharge 9. No anti-inflammatory medication until discussed at first post operative visit, this including Motrin, Aleve, Mobic, Diclofenac. 10. Follow up in office at [address] Panfilo Hodges. 11. Follow up with your primary care doctor 7-10 days after discharge. 12. Contact [facility] with any questions, . Assessment: Left hip femoral neck fracture Procedures: Left hip hemiarthroplasty Patient Condition at Discharge: Fair Plan - Discharge Summary Discharge Rx Participant: No New Discharge Prescriptions: New HYDROcodone/APAP 5-325MG [Markesan 5-325] 1 tab PO Q6HR PRN #21 tab PRN Reason: Pain Enoxaparin [Lovenox] 40 mg SQ DAILY #28 each Sennosides/Docusate Sodium [Senna Plus 8.6-50 mg Softgel] 1 each PO DAILY #20 capsule No Action Ipratropium-Albuterol Nebulize [Duoneb 0.5 mg-3 mg/3 ml Soln] 3 ml INHALATION RT-QID Budesonide [Pulmicort] 0.5 mg INHALATION RT-BID lisinopriL [Zestril] 10 mg PO DAILY Tamsulosin [Flomax] 0.4 mg PO HS Fluticasone Nasal [place] [Flonase Nasal [place]] 2 spr EA NOSTRIL DAILY Metoprolol Tartrate [Lopressor] 12.5 mg PO BID Potassium Chloride ER [K-Dur 20] 20 meq PO DAILY Ipratropium/Albuter 20-100Mcg [Combivent Respimat 20-100Mcg Inhaler] 1 puff INHALATION RT-BID PRN PRN Reason: Shortness Of Breath Multivitamins, Thera [Multivitamin (formulary)] 1 tab PO HS Finasteride [Proscar] 5 mg PO DAILY Ferrous Sulfate [Iron (65 MG Elemental)] 325 mg PO DAILY Aspirin EC [Ecotrin Low Dose] 81 mg PO DAILY Discharge Medication List Budesonide [Pulmicort] 0.5 mg INHALATION RT-BID 10/22/20 [History] Fluticasone Nasal [place] [Flonase Nasal [place]] 2 spr EA NOSTRIL DAILY 10/22/20 [History] Ipratropium-Albuterol Nebulize [Duoneb 0.5 mg-3 mg/3 ml Soln] 3 ml INHALATION RT-QID 10/22/20 [History] Metoprolol Tartrate [Lopressor] 12.5 mg PO BID 10/22/20 [History] Tamsulosin [Flomax] 0.4 mg PO HS 10/22/20 [History] lisinopriL [Zestril] 10 mg PO DAILY 10/22/20 [History] Aspirin EC [Ecotrin Low Dose] 81 mg PO DAILY 05/17/22 [History] Ferrous Sulfate [Iron (65 MG Elemental)] 325 mg PO DAILY 05/17/22 [History] Finasteride [Proscar] 5 mg PO DAILY 05/17/22 [History] Ipratropium/Albuter 20-100Mcg [Combivent Respimat 20-100Mcg Inhaler] 1 puff INHALATION RT-BID PRN 05/17/22 [History] Multivitamins, Thera [Multivitamin (formulary)] 1 tab PO HS 05/17/22 [History] Potassium Chloride ER [K-Dur 20] 20 meq PO DAILY 05/17/22 [History] Enoxaparin [Lovenox] 40 mg SQ DAILY #28 each 05/21/22 [Rx] HYDROcodone/APAP 5-325MG [Markesan 5-325] 1 tab PO Q6HR PRN #21 tab 05/21/22 [Rx] Sennosides/Docusate Sodium [Senna Plus 8.6-50 mg Softgel] 1 each PO DAILY #20 capsule 05/21/22 [Rx] Follow up Appointment(s)/Referral(s): Kt Wolf MD [Primary Care Provider] - 1-2 days Panfilo Hodges DO [Doctor of Osteopathic Medicine] - 2 Weeks Activity/Diet/Wound Care/Special Instructions: script for hospital bed at [facility] when the pt is getting d/c for ECF and have them deliver the bed. Orthopedic Discharge Instructions: 1. Wound care and infection precautions, keep incision dry and covered while showering, no lotions, creams, moisturizers. No soaking, pools, hot tubs. Do not scrub over incision. 2. Weight-bear as tolerated with walker / cane until follow-up. Abductor pillow while in bed 3. Ice and elevate when necessary. Do not exceed 20 minutes per hour with ice pack. 4. Utilize compression sleeve until seen at first follow up appointment. 5. Pain meds and anticoagulants per prescription. 6. Pain medication has potential to cause constipation. Increase oral fluid and fiber intake. Contact primary care provider if you have not had a bowel movement within 48 hours after discharge. 7. No anti-inflammatory medication until discussed at first post operative visit, this including Motrin, Aleve, Mobic, Diclofenac. 8. Follow up in office at [address] Panfilo Hodges 9. Follow up with your primary care doctor 7-10 days after discharge. 10. Contact [facility] with any questions, . Discharge Disposition: TRANSFER TO SNF/ECF
[2022-05-24 12:27] VITALS: BP 151/72; PULSE 87; RESP 18; TEMP 98.2
--- NOTE | 2022-05-24 15:42 | P.PN ---
Subjective Progress Note Date: 05/24/22 Status post fall hip fracture 05/20. Patient seen and examined. Laying comfortably in the bed. Heart rate is elevated, could be secondary to pain. Denies any shortness of breath 05/21. Patient seen and examined. Patient doing much better today. Currently sitting in the chair. at the bedside, they're very happy with the progress. Heart rate is better controlled 05/22. Patient seen and examined. No acute issues overnight 05/23 patient seen and examined. Currently waiting on insurance authorization for discharge to rehab facility. Vital signs this morning are temperature 90.9, heart rate 84, respirations 18, blood pressure 104/62 05/24. Patient seen and examined. Vital signs stable. Patient medically stable for discharge REVIEW OF SYSTEMS: CONSTITUTIONAL: No fever, no malaise,. CARDIOVASCULAR: No chest pain, no palpitations, no syncope. PULMONARY: No shortness of breath, no cough, GASTROINTESTINAL: No diarrhea, no nausea, no vomiting, no abdominal pain. NEUROLOGICAL: No headaches, no weakness, PHYSICAL EXAMINATION: GENERAL: The patient is alert and oriented x3, not in any acute distress. Well developed, well nourished. HEENT: Pupils are round and equally reacting to light. EOMI. No scleral icterus. No conjunctival pallor. Normocephalic, atraumatic. No pharyngeal erythema. No thyromegaly. CARDIOVASCULAR: S1 and S2 present. No murmurs, rubs, or gallops. PULMONARY: Chest is clear to auscultation, no wheezing or crackles. ABDOMEN: Soft, nontender, nondistended, normoactive bowel sounds. No palpable organomegaly. MUSCULOSKELETAL: Left hip surgical incision seen NEUROLOGICAL: Gross neurological examination did not reveal any focal deficits. SKIN: No rashes. Assessment and plan * Status post fall left hip fracture s/p repair * Preoperative medical clearance for hip fracture repair * Hypertension * History of asthma per chart review * History of CHF per chart review Plan * Monitor vital signs * Continue Lopressor 25 twice a day * Continue to hold lisinopril for now * Continue to monitor intake and output, caution with fluid status * Orthopedic team following and primary * DVT prophylaxis per orthopedics * PT and OT recommended rehab, waiting on insurance authorization * Patient medically stable for discharge : Objective - Vital Signs Vital signs: Vital Signs Temp 98.2 F 05/24/22 11:40 Pulse 94 05/24/22 12:04 Resp 18 05/24/22 11:40 BP 151/72 05/24/22 11:40 Pulse Ox 94 L 05/24/22 11:40 FiO2 21 05/18/22 17:45 Intake & Output 05/23/22 05/24/22 05/24/22 18:59 06:59 18:59 Output Total 650 400 Balance -650 -400 Output: Urine 650 400 Other: Voiding Method Urinal # Voids 4 - Labs CBC & Chem 7: 05/21/22 07:32 05/21/22 07:32
== END 2022-05-24 14:36 | DRG 522 ==
LOC: EC 19:37 → 4SSUR 20:57 → 5NMEDONC 22:27
PROVIDERS: ADMIT Orthopaedic Surgery; ATTEND Orthopaedic Surgery
PROC: 0SRS0JA Replacement of Left Hip Joint, Femoral Surface with Synthetic Substitute, Uncemented, Open Approach (ICD-10-PCS; principal; 2022-05-19)
DX: S72.012A Unspecified intracapsular fracture of left femur, initial encounter for closed fracture (principal); D62 Acute posthemorrhagic anemia; W18.30XA Fall on same level, unspecified, initial encounter; Y92.009 Unspecified place in unspecified non-institutional (private) residence as the place of occurrence of the external cause; Z28.310 Unvaccinated for COVID-19; Z20.822 Contact with and (suspected) exposure to COVID-19; Z28.21 Immunization not carried out because of patient refusal; Z87.891 Personal history of nicotine dependence; I10 Essential (primary) hypertension; J44.9 Chronic obstructive pulmonary disease, unspecified; Z96.641 Presence of right artificial hip joint; I50.9 Heart failure, unspecified; I11.0 Hypertensive heart disease with heart failure; Z79.82 Long term (current) use of aspirin; Z79.899 Other long term (current) drug therapy
CPT/HCPCS: 73501; 73502; 80048; 80053; 85025; 85027; 87635; 88305; 88311; 94640; 94760

== ENCOUNTER → 2022-12-03 | Outpatient (CLI) | payer MEDICARE ==
--- NOTE | 2022-12-08 12:38 | PE ---
EXAMINATION TYPE: PET CT fusion skull to thigh DATE OF EXAM: 12/03/2022 COMPARISON: 05/17/2022 chest abdomen pelvis. Prior PET/CT: None HISTORY: Solitary pulmonary nodule TECHNIQUE: Following the intravenous administration of 10 mCi of F-18 FDG, whole body images are per formed from the skull base to the midthigh. Images are reviewed on the computer in the coronal, axia l, and sagittal planes. Reconstructed rotating images are created on independent workstation and rev iewed on the computer. A localization and attenuation correction CT is performed in conjunction wit h the PET scan. DLP: 413.12 mGycm SCAN: Initial Blood glucose: 92 mg/dL Average Mediastinum SUV: 1.82 Average Liver SUV: 2.38 FINDINGS: NECK: No abnormal uptake THORAX: There is a punctate area of increased radiotracer in the anterior right apex, image 46, SUV 1 .87. This is intermediate. Infectious etiology and neoplasm are within the differential. This is smal l which may account for the low uptake which may be below threshold for accurate assessment. There is uptake within the nodule within the posterior right lung. Image 82, SUV 5.88. Finding is aiden picious for neoplasm. Suspicious uptake within prominent mediastinal lymph nodes is not evident. Some intermediate uptake i s within a prominent right axillary lymph node. Image 56. SUV 1.72 ABDOMEN: No abnormal uptake. No abnormal uptake within the retrocrural lymph node is evident. PELVIS: Increased uptake within the right portion of the prostate gland. Consider prostate cancer. Ex ample image 213, SUV 9.84 Possible uptake adjacent to the posterior lateral urinary bladder could inc lude urinary bladder diverticuli. Due to beam hardening artifact, this was somewhat difficult locatio n to differentiate. Lymph nodes, distal ureters are not excluded. Consider ultrasound urinary bladde r for additional evaluation. Comparison with the CT 05/17/22 suggests urinary bladder diverticulum mos t likely within the differential. OSSEOUS STRUCTURES: No abnormal uptake LOCALIZATION CT: Emphysematous changes are noted through the lung amos COMPARISON: Urinary bladder diverticuli. The present on the comparison study. IMPRESSION: 1. Uptake within the lung nodules suspicious for neoplasm. 2. Enlarged mediastinal and retrocrural lymph nodes without abnormal uptake. 3. Increased uptake within the right portion of the prostate gland. Consider prostate cancer. 4. Uptake adjacent to the urinary bladder could be within urinary bladder diverticuli.
== END | disposition home or self-care (01) ==
LOC: RADPETMAIN 13:23
PROVIDERS: ATTEND Family Medicine
DX: R91.8 Other nonspecific abnormal finding of lung field (principal); R59.0 Localized enlarged lymph nodes; R94.6 Abnormal results of thyroid function studies; R94.8 Abnormal results of function studies of other organs and systems
CPT/HCPCS: 78815; A9552